=== PATIENT | male | born 1945 | race Caucasian/White ===

== ENCOUNTER 2025-03-30 08:43 | Inpatient (IN) | payer MEDICARE, OTHER ==
[~2025-03-30] VITALS: Ht 175.3 cm; Wt 77.3 kg
--- NOTE | 2025-03-30 08:52 | ELECTROCARDIOGRAPH REPORT ---
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 Ellis Camarillo Measurements Intervals [place] Rate: 106 P: 62 [place]: 160 QRS: -47 QRSD: 134 T: 55 QT: 351 QTc: 467 Interpretive Statements Pacemaker spikes or artifacts Sinus tachycardia Left atrial enlargement RBBB and LAFB Electronically Signed On 04-10-2025 21:42:[address] Ellis Camarillo Please click the below link to view image of tracing.
--- NOTE | 2025-03-30 09:03 | Physician Documentation ---
History of Present Illness ~ Chief Complaint: Shortness of Breath Stated Complaint: SOB Time Seen by MD: 08:54 Source: patient, EMS, RN notes reviewed, EMS notes reviewed, skilled nursing records Mode of Arrival: EMS Exam Limitations: no limitations HPI Chief Complaint: Shortness a breath Caveat: None Independent Historians: Paramedics History of Present Illness: Patient is a 79-year-old man brought in by paramedics from the [place] [facility]. Patient complains of increasing nonproductive cough and shortness of breath over week. Patient also has complained of increasing generalized weakness over one week. Patient normally uses oxygen intermittently as needed for his COPD. Now he has required oxygen 2 L nasal cannula for a pulse ox of 88% on room air at the [place] [facility]. For paramedics he had a pulse ox of 85-86% on room air. Blood glucose of 439, blood pressure 103/53 and a heart rate of 110 and respiratory rate of 24. Patient's pulse ox on 2 L improved to 97% on room air. Review of systems: All systems were reviewed and are negative except for what is indicated in the history of present illness. Past Medical History: Lung cancer, COPD, no history of diabetes, Past Surgical History: NONCONTRIBUTORY Social History: Lives at [facility] Medications: Reviewed as documented Nursing Notes Allergies: Reviewed as documented in Nursing Notes Medication Reconciliation Allergies: Coded Allergies: No Known Allergies (Unverified , 03/30/25) Scheduled Amlodipine Besylate (Amlodipine Besylate), 1 TAB PO DAILY, (Reported) Cyanocobalamin (Vitamin B-12) (Vitamin B-12), 1 CAP PO DAILY, (Reported) Docusate Sodium (Docusate Sodium), 1 CAP PO Q12H, (Reported) Finasteride (Finasteride), 1 TAB PO DAILY, (Reported) Omeprazole (Omeprazole), 1 CAP PO DAILY, (Reported) Polyethylene Glycol 3350* (Miralax*), 1 PKT PO DAILY, (Reported) Sennosides (Senna), 1 TAB PO Q12H, (Reported) Simvastatin (Simvastatin), 1 TAB PO HS, (Reported) Umeclidinium Morris (Incruse Ellipta), 1 PUFFS INH DAILY, (Reported) Miscellaneous Medications Fluticasone/Salmeterol (Advair 100-50 Diskus), (Reported) Iron Polysaccharides Complex (Ferrex 150), 150 MG PO, (Reported) Lactose-Free Food (Ensure Plus), (Reported) [Tamsulosin], (Reported) Physical Exam Vital Signs: Temperature: 98.2, Source: Oral, Heart Rate: 105, Respiratory Rate: 22, BP: 98/59, Pulse Oximetry: 92, Weight: 77.270 Oxygen Flow Rate: 0 Progress Results/Orders Results/Orders Orders - COSTA SIMMONS MD Culture Blood (03/30/25 08:45) Chest,Single View (03/30/25 08:45) Monitor (03/30/25 08:45) Saline Lock (03/30/25 08:45) Ct Chest (03/30/25 09:32) Cult Urine + Anton Ct (03/30/25 10:00) Page Hospitalist (03/30/25 10:45) Fill Out Med Reconciliation (03/30/25 10:45) Completed Orders - COSTA SIMMONS MD Cbc/Diff (03/30/25 08:45) Chest,Single View (03/30/25 08:45) Electrocardiogram (03/30/25 08:45) Procalcitonin (03/30/25 08:45) Lacticsepsis (03/30/25 08:45) CMP (03/30/25 08:55) Ceftriaxone 2gm/D5w 50ml Bag (Rocephin 2 (03/30/25 09:30) Normal Saline 1000ml (Sodium Chloride 10 (03/30/25 09:30) Ct Chest (03/30/25 09:32) Albuterol 2.5mg/3ml Nebule (Proventil 2. (03/30/25 10:00) * Rt Notification Q1H (03/30/25 09:58) Methylprednisolone Sod Succ (Solumedrol (03/30/25 10:00) Ua W/Microscopic, Cult If Ind (03/30/25 09:46) Methylprednisolone Sod Succ/Pf (Solu-Med (03/30/25 10:05) Man Diff (03/30/25 08:59) Lactic,2hr (03/30/25 10:27) Medications Received in ER Medications (Trade) Dose Ordered Sig/Giorgio Route PRN Reason Start Time Stop Time Status Last Admin Dose Admin Sodium Chloride 1,000 ml @ 150 mls/hr Q6H40M IV 03/30/25 11:30 03/30/25 14:17 150 MLS/HR Vital Signs 03/30/25 03/30/25 03/30/25 03/30/25 08:46 09:23 09:23 10:00 Temp 98.2 98.5 Pulse 105 102 100 Resp 22 35 30 28 B/P (MAP) 98/59 106/54 (71) 102/56 (71) Pulse Ox 92 92 92 O2 Flow Rate 0 4.0 4.0 03/30/25 03/30/25 03/30/25 10:14 10:24 11:00 Pulse 95 94 94 Resp 27 30 31 B/P (MAP) 99/49 (66) Pulse Ox 96 97 95 O2 Delivery Nasal Cannula* Nasal Cannula* O2 Flow Rate 5 5 4.0 FiO2 40 40 Laboratory Tests Test 03/30/25 08:59 03/30/25 09:46 03/30/25 10:47 White Blood Count 22.2 H Red Blood Count 3.46 L Hemoglobin 8.5 L Hematocrit 26.7 L Mean Corpuscular Volume 77.2 L Mean Corpuscular Hemoglobin 24.7 L Mean Corpuscular Hemoglobin Concent 32.0 L Red Cell Distribution Width 17.4 H Platelet Count 387 Mean Platelet Volume 8.1 Neutrophils (%) (Auto) 93.0 H Lymphocytes (%) (Auto) 3.2 L Monocytes (%) (Auto) 3.7 Eosinophils (%) (Auto) 0 Basophils (%) (Auto) 0.1 Neutrophils # (Auto) 20.7 H Lymphocytes # (Auto) 0.7 L Monocytes # (Auto) 0.8 Eosinophils # (Auto) 0.0 Basophils # (Auto) 0.0 CBC Comment Differential Total Cells Counted 100 Neutrophils % (Manual) 86.0 H Band Neutrophils % 8.0 Lymphocytes % (Manual) 3.0 L Monocytes % (Manual) 3.0 Toxic Granulation 1+ Platelet Estimate Normal Red Blood Cell Morphology Perf Basophilic Stippling Anisocytosis 1+ Microcytosis 1+ Rouleau 2+ Sodium Level 143 Potassium Level 3.9 Chloride Level 107 Carbon Dioxide Level 25.8 Anion Gap 10 Blood Urea Nitrogen 52 H Creatinine 1.47 H Estimated GFR/1.73 m2 46 BUN/Creatinine Ratio 35.4 H Glucose Level 290 H Osmolality 327 H Lactic Acid Level 3.7 H 2.7 H Calcium Level 9.7 Total Bilirubin 0.3 Aspartate Amino Transf (AST/SGOT) 23 Alanine Aminotransferase (ALT/SGPT) 26 Alkaline Phosphatase 94 Total Protein 8.0 Albumin 1.4 L Globulin 6.6 H Albumin/Globulin Ratio 0.2 L Procalcitonin 23.08 H Chemistry Comments Urine Specimen Description Mackey cath Urine Color Yellow Urine Clarity Cloudy Urine pH 6.0 Urine Specific [place] 1.025 Urine Protein 30 H Urine Glucose (UA) Negative Urine Ketones Negative Urine Occult Blood Small Urine Nitrite Negative Urine Bilirubin Negative Urine Urobilinogen 0.2 Urine Leukocyte Esterase Small H Urine RBC 3-10 Urine WBC 50-100 H Urine WBC Clumps Moderate Urine Squamous Epithelial Cells None seen Urine Renal Cells Few Urine Bacteria 4+ Urine Fine Granular Casts Urine Coarse Granular Casts 0-3 Urine White Blood Cell Casts 0-3 Urine Mucus None seen Urine Culture Indicated Indicated Volume Urine Centrifuged 5 ml Urine Comment Low volume Microbiology Date/Time Source Procedure Growth Status 03/30/25 10:00 Urine Mackey Cath Urine Culture - Preliminary Culture received. Resulted 03/30/25 09:00 Blood Arm Right Blood Culture - Preliminary NEGATIVE (LESS THAN 24 HOURS) Resulted Medical Decision Making Additional info obtained from: old records Findings Differential diagnosis includes but is not limited to: Sepsis, pneumonia, congestive heart failure, COPD exacerbation, electrolyte abnormalities, dehydration, new onset diabetes, lung cancer, pleural effusion EKG independent interpretation: Performed at 8:50 a.m.. Sinus tachycardia, heart rate 106, left axis deviation, left atrial enlargement Chest x-ray, single view, indication: Shortness of breath Independent interpretation: Complete opacification of the left lung, right lung is clear. Probable no effusion. CT chest without IV contrast, indication: Evaluation of left hemithorax opacification Impression: Large left pleural effusion with consolidation. Extensive soft tissue density within the mediastinum. Findings suggest pleural effusion with neoplastic process. Superimposed infection can not be excluded. Laboratory data independent interpretation: CBC: Leukocytosis of 22.2, the can anemia with a hemoglobin of 8.5 and hematocrit of 26.7, 8% bands CMP: BUN and creatinine are mildly elevated at 52 and 1.47 respectively Urinalysis: Patient with a urinary tract infection Lactic acid: 3.7 Emergency department course/medical decision-making: Patient is a 79-year-old man from the [place] who appears to be septic. Patient is requiring now 6 L of oxygen by nasal cannula. Chest x-ray shows complete left leno thorax opacification likely due to pneumonia, pleural fluid and lung cancer. Patient is DNR and selective care. Patient is given 1 L of IV normal saline, Solu-Medrol 125 mg IV bolus, Rocephin 2 g IV, albuterol 5 mg neb. Patient also has COPD. Above treatment is given for sepsis, pneumonia. Patient may also have a urinary tract [place]. [place] [id number] and a lactic acid of 3.7. Patient's blood pressure has been stable. Recommend Admission for the above and continued treatment. Test results and treatment plan reviewed with the patient. Consultation/communications: 11:07 a.m.: Case discussed with the resident/hospitalist. He will see the patient for admission. Departure Time of Disposition: 10:44 Admitted to Inpatient Unit: to hospitalist Admission Level of Care: PCU with Tele Impression: Primary Impression: Respiratory failure with hypoxia Qualified Codes: J96.21 - Acute and chronic respiratory failure with hypoxia Additional Impressions: Acute exacerbation of chronic obstructive airways disease Pneumonia Qualified Codes: J18.9 - Pneumonia, unspecified organism Sepsis Qualified Codes: A41.9 - Sepsis, unspecified organism; R65.20 - Severe sepsis without septic shock; J96.01 - Acute respiratory failure with hypoxia Lung cancer Qualified Codes: C34.90 - Malignant neoplasm of unspecified part of unspecified bronchus or lung Pleural effusion Anemia Qualified Codes: D64.9 - Anemia, unspecified Acute kidney injury Referrals: NO PRIMARY CARE PROVIDER (PCP) Education Educated: Patient Educated regarding: diagnosis, treatment Signature Scribe Signature: NO SCRIBE Attestation: NO SCRIBE COSTA SIMMONS MD March 30, 2025 09:03
[2025-03-30 09:13] LABS: BASOPHILS % (AUTO) 0.1 % (0-1); EOSINOPHILS % (AUTO) 0 % (0-6); HEMATOCRIT 26.7 % (42.0-52.0); HEMOGLOBIN 8.5 g/dl (14.0-17.9); LYMPHOCYTES # (AUTO) 0.7 X10'3 (1.1-4.8); LYMPHOCYTES % (AUTO) 3.2 % (21-51); MEAN CORPUSCULAR HEMOGLOBIN 24.7 PG (27.0-31.0); MEAN CORPUSCULAR VOLUME 77.2 FL (78-98); MEAN PLATELET VOLUME 8.1 FL (7.4-10.4); MONOCYTES # (AUTO) 0.8 X10'3 (0-0.9); MONOCYTES % (AUTO) 3.7 % (2-12); NEUTROPHILS # (AUTO) 20.7 X10'3 (1.8-7.7); PLATELET COUNT 387 X10'3 (140-440); RED BLOOD COUNT 3.46 X10'6 (4.70-6.10); RED CELL DISTRIBUTION WIDTH 17.4 % (11.5-14.5); WHITE BLOOD COUNT 22.2 X10'3 (4.5-11.0)
--- NOTE | 2025-03-30 09:20 | RADIOLOGY REPORT ---
DI CHEST,SINGLE VIEW, HISTORY: sepsis alert COMPARISON: None None TECHNICAL DATA: 1 view of the chest was obtained. FINDINGS: Lines and tubes: None Cardiomediastinal silhouette: normal Pulmonary vasculature: normal Lung expansion: normal Lung airspace: Lung interstitium: normal Pleura: normal Pneumothorax: no Bones: Unremarkable Other: no IMPRESSION: Near complete opacification of the left hemithorax with a adjacent left pleural effusion could be due to consolidation.
[2025-03-30 09:24] LABS: ALANINE AMINOTRANSFERASE 26 U/L (12-78); ALBUMIN 1.4 G/DL (3.4-5.0); ALBUMIN/GLOBULIN RATIO 0.2 (1.1-1.5); ALKALINE PHOSPHATASE 94 IU/L (46-116); ANION GAP 10 (8-16); ASPARTATE AMINO TRANSFERASE 23 U/L (10-37); BILIRUBIN,TOTAL 0.3 MG/DL (0.1-1.0); BLOOD UREA NITROGEN 52 MG/DL (7-18); BUN/CREATININE RATIO 35.4 (10.0-20.0); CALCIUM 9.7 MG/DL (8.5-10.1); CHLORIDE 107 MMOL/L (99-107); CREATININE 1.47 MG/DL (0.60-1.10); GLUCOSE 290 MG/DL (70-104); POTASSIUM 3.9 MMOL/L (3.5-5.1); SODIUM 143 MMOL/L (135-145); TOTAL CARBON DIOXIDE 25.8 MMOL/L (24-32); eCRCL 41 ML/MIN; eGFR 46 ML/MIN
[2025-03-30] MEDS: normal saline 1000ML IV soln IV ONE (09:38)
[2025-03-30 09:58] LABS: BILIRUBIN,URINE NEGATIVE (Neg); CLARITY,URINE CLOUDY (Clear); COLOR,URINE YELLOW (Yellow); GLUCOSE, URINE NEGATIVE (Neg); KETONES,URINE NEGATIVE (Neg); LEUKOCYTE ESTERASE ,URINE SMALL (Neg); NITRITES, URINE NEGATIVE (Neg); OCCULT BLOOD,URINE SMALL (Neg); PROTEIN,URINE 30 mg/dl (Neg); UROBILINOGEN,URINE 0.2 E.U/dL (0.2-1.0)
[2025-03-30 10:00] LABS: UA COLLECTION TYPE FOLEY CATH
[2025-03-30] MEDS: CefTRIAXone 2gm/D5W 50ml BAG 50 ML IV ONE (10:00)
[2025-03-30 10:03] LABS: BACTERIA,URINE 4+ /HPF (Neg); WBC,URINE 50-100 /HPF (0-4)
[2025-03-30 10:04] LABS: COARSE GRANULAR CAST 0-3 /LPF (NEGATIVE); MUCUS STRANDS NONE SEEN /LPF (Neg); RENAL CELLS, URINE FEW /HPF; SQUAMOUS EPITHELIAL CELL,UR NONE SEEN /LPF (FEW); WBC CASTS 0-3 /LPF (NEGATIVE); WBC CLUMPS,URINE MODERATE /HPF (NEGATIVE)
--- NOTE | 2025-03-30 10:07 | RADIOLOGY REPORT ---
EXAM: CT Chest Without Intravenous Contrast CLINICAL INDICATION: SHORTNESS OF BREATH, OPACIFICATION OF LEFT CHEST TECHNIQUE: Axial computed tomography images of the chest without intravenous contrast. This CT exam was performed using one or more of the following dose reduction techniques: automated exposure cont rol, adjustment of the mA and/or kV according to patient size, and/or use of iterative reconstruction technique. CONTRAST: COMPARISON: None FINDINGS: LUNGS AND PLEURAL SPACES: Large left pleural effusion with consolidation. Extensive soft tissue de nsity within the mediastinum. Findings suggest pleural effusion with neoplastic process. Superimpos ed infection can not be excluded. No pneumothorax. HEART: Unremarkable. No cardiomegaly. No significant pericardial effusion. No significant dominguez ry artery calcifications. BONES/JOINTS: Unremarkable. No acute fracture. No dislocation. SOFT TISSUES: Unremarkable. VASCULATURE: Unremarkable. No thoracic aortic aneurysm. LYMPH NODES: Unremarkable. No enlarged lymph nodes. OTHER FINDINGS: . IMPRESSION: Large left pleural effusion with consolidation. Extensive soft tissue density within the mediastinu m. Findings suggest pleural effusion with neoplastic process. Superimposed infection can not be exc luded.
[2025-03-30] MEDS: methylPREDNISolone sod succ 125mg/2ml vial IV ONE (10:09)
[2025-03-30] MEDS: methylPREDNISolone sod succ/PF 40mg inj. IV ONE (10:10)
[2025-03-30] MEDS: albuterol 2.5 MG/3 ML nebule NEB ONE (10:12)
[2025-03-30 10:14] VITALS: PULSE 95; RESP 25; RESP 27; O2SAT 96
[2025-03-30 10:20] LABS: ANISOCYTOSIS 1+; MICROCYTOSIS 1+; PLATELET ESTIMATE NORMAL; ROULEAUX 2+; TOTAL CELLS COUNTED 100
[2025-03-30 10:21] LABS: TOXIC GRANULATION 1+
[2025-03-30 10:24] VITALS: PULSE 94; RESP 30; O2SAT 97
[2025-03-30] MEDS ORDERED: ondansetron/PF 4mg/2ml inj IV PRN (11:30)
[2025-03-30] MEDS ORDERED: magnesium sulf-water 2g/50mL 50 ML IV PRN (11:30)
[2025-03-30] MEDS ORDERED: magnesium Cl slow-release 64mg tablet PO PRN (11:30)
[2025-03-30] MEDS ORDERED: acetaminophen 325mg tablet PO PRN (11:30)
[2025-03-30] MEDS ORDERED: potassium Cl 40MEQ/1/2NS 520ml 520 ML IV PRN (11:30)
[2025-03-30] MEDS ORDERED: magnesium sulf-water 4G/100mL 100 ML IV PRN (11:30)
[2025-03-30] MEDS ORDERED: ipratropium/albuterol 3ml nebule NEB PRN (11:40)
--- NOTE | 2025-03-30 11:46 | HISTORY AND PHYSICAL-Residence ---
History & Physical Providers to CC Resident Creating Document: MARK LEBRON RES ~ History of Present Illness Reason for Admit\Complaint: SHORTNESS OF BREATHS History of Present Illness Patient is a 79-year-old male, active smoker, with a history of COPD (not on home oxygen) and lung cancer (20 years ago) presents to ED for progressively worsening shortness of breath and cough for the past four weeks. For the past one week, his shortness of breath has gotten worse and has been constantly coughing; usually dry cough, but occasionally produce whitish sputum. Patient also noticed recent weight loss, but does not know how much, and diminished appetite. He denies any fever, chest pain, or chills. He also denies any urinary symptoms. He has completed chemotherapy 20 years ago for lung cancer. He seeks primary care at [facility]. 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 Allergies: Coded Allergies: No Known Allergies (Unverified , 03/30/25) Past Medical History Past Medical History COPD, lung cancer Past Surgical History Surgical History Comment None Past Social History Social History Comment Patient lives at [facility], he has been smoking for the past 60 years; 3-4 cigarettes per day. No alcohol or recreational drugs. ROS All Other Systems: Reviewed and Negative ROS As stated above in the HPI, otherwise all systems are reviewed and negative. Exam Vitals: Vital Signs Date Time Temp Pulse Resp B/P (MAP) Pulse Ox O2 Delivery O2 Flow Rate FiO2 03/30/25 11:00 94 31 99/49 (66) 95 4.0 03/30/25 10:24 Nasal Cannula* 40 03/30/25 09:23 98.5 General Appearance: Cachectic, very dry, lost his voice only communicate through whispers HEENT: Sunken eyes Neck: Trachea midline. Supple, normal ROM. No JVD, bruit, lymphadenopathy or masses, or other lesions. Respiratory: Bronchial breath sounds bilaterally, more prominent on left side, diffuse bilateral coarse crackles. Decreased breath sounds left side. Cardiac: RRR, no murmur, rub or gallop. Normal S1 and S2. GI: No tenderness. Abdomen symmetric, nondistended, soft, normal bowel sounds x4 quadrant normoactive. No guarding, no rebound or rigidity. No hepatosplenomegaly. No masses, no bruit, no flank pain bilaterally. Extremities: Normal ROM, no swelling, non-tender. Distal pulses full symmetrical, no clubbing, cyanosis, edema, capillary refill less than 2 seconds. Skin: Prominent skin turgor is Neuro: Speech is clear, alert and oriented x4. No sensory or motor deficit, DTRs normal. Cranial nerves II to XII intact. Psych: Normal affect, good eye contact, no apparent hallucination, whispers but normal communication Diagnostic Data Last Recorded Lab Results: 03/30/25 0859 03/30/25 0859 Advance Care Planning Advanced Care plannin - 30 Minutes Additional Plan Assessment and plan: Patient is a 79-year-old male, active smoker, with a history of COPD (not on home oxygen) and lung cancer (20 years ago) presents to ED for progressively worsening shortness of breath and cough for the past four weeks. Acute hypoxemic respiratory failure Sepsis and septic shock, POA; leukocytosis of 22.2, with 8% bands, lactic acidosis with 3.7, hypotensive, tachypneic, and tachycardic Community acquired pneumonia, Gram-positive, Gram-negative, and anaerobic coverage Acute COPD exacerbation Source; most likely combination of pneumonia and UTI CXR shows complete opacification of the left lung CT chest; left hemothorax opacification with large left pleural effusion with consolidation Nonetheless right lung is clear, I highly suspect aspiration pneumonia because of impaired vocal cord/laryngeal function. Preliminary blood cultures negative, follow sputum culture and coagulation profile On 6 L oxygen via nasal cannula - Keep oxygen saturation between 89 and 90%, IV hydration; received 2 L NS bolus in ER, ordered another 1 L bolus. Continue NS 125 mL/hours Keep MEP > 65, if hypotension persists with IV hydration, we will initiate vasopressors Monitor lactic acid level, we will repeat in 4 hours Initiated empiric broad-spectrum antibiotics i.e. vancomycin and Zosyn Monitor hemodynamic instability closely Urinary tract infection: UA suggestive of UTI Follow culture On broad-spectrum antibiotics Acute kidney injury: ATN versus renal tubular stasis Continue IV hydration Follow urine sodium, creatinine, and osmolality Monitor BMP closely Microcytic hypochromic anemia: Monitor H&H closely, transfuse when indicated; hemoglobin < 7.0 Follow serum iron, ferritin, and TIBC Code Status: Full DVT prophylaxis: Heparin subQ Analgesia/sedation: Tylenol as needed Line/tube: PIV GI prophylaxis: Protonix Nutrition: NPO until cleared by speech/swallow PT: Yes Prognosis: Guarded Disposition: Patient is admitted to telemetry floor. Patient may benefit from diagnostic/therapeutic thoracentesis and bronchoscopy - pulmonology consult. Mark Lebron Internal Medicine Resident Date of Service: March 30, 2025 Billing Provider: KETTY CARRION MD Common Visit Codes: 25652-WHGAVSW INP/OBS CARE (HIGH) Secondary Visit Codes: 23764-MXLNOPSF CARE PLAN 30 MINUTES MARK LEBRON, RES March 30, 2025 11:46 KETTY CARRION MD April 10, 2025 17:35
[2025-03-30] MEDS: normal saline 1000ml 1,000 ML IV ONE (12:22)
[2025-03-30] MEDS: VANCOMYCIN 2GM/400ML H20 (PEG) 400 ML IV ONE (12:26)
[2025-03-30] MEDS ORDERED: TAMSULOSIN (12:44)
[2025-03-30] MEDS ORDERED: DOCU100C40 PO (12:44)
[2025-03-30] MEDS ORDERED: AMLO10TA13 PO (12:44)
[2025-03-30] MEDS ORDERED: ADV50100 (12:44)
[2025-03-30] MEDS ORDERED: FINA5TAB11 PO (12:44)
[2025-03-30] MEDS ORDERED: IRON150C5 PO (12:44)
[2025-03-30] MEDS ORDERED: OMEP20CA16 PO (12:44)
[2025-03-30] MEDS ORDERED: SENN-360 PO (12:44)
[2025-03-30] MEDS ORDERED: UMEC62.5 INH (12:44)
[2025-03-30] MEDS ORDERED: LACT-48 (12:44)
[2025-03-30] MEDS ORDERED: POLY17PO10 PO (12:44)
[2025-03-30] MEDS ORDERED: CYAN-34 PO (12:44)
[2025-03-30] MEDS ORDERED: SIMV10TA98 PO (12:44)
[2025-03-30 13:19] LABS: % IRON SATURATION 9 % (11-46); IRON 10 UG/DL (53-167); TOTAL IRON BINDING CAPACITY 110 UG/DL (259-388)
[2025-03-30] MEDS: normal saline 1000ml 1,000 ML IV SCH (14:17)
[2025-03-30 14:29] LABS: APTT 21 SECONDS (22-32); INR 1.8 INR; PROTHROMBIN TIME 17.3 SECONDS (9.0-12.0)
[2025-03-30] MEDS: ipratropium/albuterol 3ml nebule NEB SCH (15:00)
--- NOTE | 2025-03-30 15:13 | ELECTROCARDIOGRAPH REPORT ---
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 Ellis Camarillo Measurements Intervals [place] Rate: 102 P: 69 [place]: 151 QRS: -21 QRSD: 131 T: 41 QT: 363 QTc: 473 Interpretive Statements Sinus tachycardia Ventricular bigeminy Left atrial enlargement Right bundle branch block Electronically Signed On 04-10-2025 21:42:[address] Elils Camarillo Please click the below link to view image of tracing.
[2025-03-30] MEDS: piperacillin/tazo 3.375gm/50ml 50 ML IV SCH (16:15)
[2025-03-30] MEDS: K and/or MAG REPLACEMENT MC SCH (20:00)
[2025-03-30] MEDS: heparin, porcine 5000 units/ml vial SQ SCH (21:08)
[2025-03-30] MEDS: pantoprazole 40 MG vial IV SCH (21:09)
[2025-03-30 21:32] VITALS: BP 109/52; PULSE 91; RESP 22; TEMP 97.6; O2SAT 95
[2025-03-30 22:00] VITALS: BP 101/51; PULSE 93; RESP 15; RESP 32; TEMP 97.8; O2SAT 92; O2SAT 95
[2025-03-30 22:53] VITALS: PULSE 85; RESP 32; O2SAT 92
[2025-03-30 23:00] VITALS: PULSE 81; RESP 26
[2025-03-31] VITALS (19 sets, daily range): BP systolic 103–135; BP diastolic 47–63; PULSE 75–109; RESP 16–31; TEMP 97.9–99.9; O2SAT 83–96
[2025-03-31 06:35] LABS: BASOPHILS % (AUTO) 0.2 % (0-1); EOSINOPHILS % (AUTO) 0 % (0-6); HEMATOCRIT 25.2 % (42.0-52.0); LYMPHOCYTES % (AUTO) 6.5 % (21-51); MEAN CORPUSCULAR HEMOGLOBIN 24.8 PG (27.0-31.0); MEAN CORPUSCULAR HGB CONC 31.9 g/dL (33.0-36.5); MEAN CORPUSCULAR VOLUME 77.9 FL (78-98); MEAN PLATELET VOLUME 8.1 FL (7.4-10.4); MONOCYTES # (AUTO) 0.6 X10'3 (0-0.9); MONOCYTES % (AUTO) 4.1 % (2-12); NEUTROPHILS # (AUTO) 13.4 X10'3 (1.8-7.7); NEUTROPHILS % (AUTO) 89.2 % (42-75); PLATELET COUNT 295 X10'3 (140-440); RED BLOOD COUNT 3.23 X10'6 (4.70-6.10); RED CELL DISTRIBUTION WIDTH 17.9 % (11.5-14.5); WHITE BLOOD COUNT 15.1 X10'3 (4.5-11.0)
[2025-03-31 07:04] LABS: ALANINE AMINOTRANSFERASE 16 U/L (12-78); ALBUMIN/GLOBULIN RATIO 0.2 (1.1-1.5); ALKALINE PHOSPHATASE 67 IU/L (46-116); ANION GAP 8 (8-16); ASPARTATE AMINO TRANSFERASE 20 U/L (10-37); BILIRUBIN,TOTAL 0.3 MG/DL (0.1-1.0); BLOOD UREA NITROGEN 37 MG/DL (7-18); BUN/CREATININE RATIO 40.2 (10.0-20.0); CHLORIDE 117 MMOL/L (99-107); CREATININE 0.92 MG/DL (0.60-1.10); GLUCOSE 251 MG/DL (70-104); SODIUM 148 MMOL/L (135-145); TOTAL CARBON DIOXIDE 23.2 MMOL/L (24-32); TOTAL PROTEIN 6.8 G/DL (6.4-8.2); eCRCL 66 ML/MIN; eGFR 80 ML/MIN
[2025-03-31] MEDS: methylPREDNISolone sod succ/PF 40mg inj. IV SCH ×2 (08:19→17:14)
[2025-03-31] MEDS: potassium Cl 20 mEq SR tablet PO PRN (08:23)
[2025-03-31] MEDS: guaiFENesin ER 600mg tablet PO SCH (11:41)
[2025-03-31] MEDS: vancomycin/NS 1 GM ADD-VANTAGE 250 ML IV SCH (11:41)
[2025-03-31] MEDS ORDERED: ipratropium/albuterol 3ml nebule NEB PRN (14:40)
--- NOTE | 2025-03-31 16:47 | PROGRESS NOTE- Residence ---
Progress Note - Resident Providers to CC Resident Creating Document: MICHAEL MONTOYA RES CC: KETTY CARRION MD ~ Antibiotic Timeout Antibiotic Ordered?: Yes Subjective Patient examined at bedside. Patient's family was at bedside who shared a piece of history when patient had lung cancer 18 years back and right lung was resected partially (2/3) 18 years ago. Objective Vital Signs Date Time Temp Pulse Resp B/P (MAP) Pulse Ox O2 Delivery O2 Flow Rate FiO2 03/31/25 15:42 101 27 Nasal Cannula 5.0 03/31/25 15:34 94 40 03/31/25 02:00 98.4 103/54 (70) Result Diagram: 03/31/2561903/31/25619 General: Cachectic, Alert, awake, oriented, not in acute distress HEENT: PERRLA, no icterus, pallor, lymphadenopathy, carotid bruit Respiratory system: Decreased breath sounds on the left side in all lung zones, inspiratory crackles present in right middle and lower zones CVS: S1-S2 heard, no murmurs/rubs/gallop GI: Soft, nontender, no organomegaly, no guarding/rigidity, bowel sounds present Neuro: No focal neurological deficits present Extremities: No edema cyanosis clubbing/deformities Skin: Warm and dry Coagulation Studies Laboratory Tests Test 03/30/25 14:08 Prothrombin Time 17.3 SECONDS (9.0-12.0) H INR International Normalized Ratio 1.8 INR Activated Partial Thromboplast Time 21 SECONDS (22-32) L Coagulation Comments Assessment Assessment A 73-year-old male active smoker with history of COPD and lung cancer presented to the ED for progressive worsening of shortness of breaths and cough. Patient was admitted for the evaluation management of community-acquired pneumonia, COPD exacerbation and UTI. Plan Plan Acute hypoxemic respiratory failure 2/2 Community-acquired pneumonia Gram-positive, Gram-negative, and anaerobic coverage Acute COPD exacerbation Sepsis, POA leukocytosis, improving Blood cultures positive for Gram-positive cocci in clusters Follow up with sputum culture On 6 L oxygen via nasal cannula - Keep oxygen saturation between 89 and 90%, IV hydration; received 2 L NS bolus in ER, ordered another 1 L bolus. Continue NS 125 mL/hours Keep MEP > 65, if hypotension persists with IV hydration, we will initiate vasopressors Monitor lactic acid level, we will repeat in 4 hours Initiated empiric broad-spectrum antibiotics i.e. vancomycin and Zosyn (day two) Monitor hemodynamic instability closely Urinary tract infection: UA suggestive of UTI Cultures positive for Gram-positive cocci and Gram-negative rods On broad-spectrum antibiotics as per above Acute kidney injury: 2/2 renal tubular stasis, improved Continue IV hydration Monitor BMP closely Microcytic hypochromic anemia: Monitor H&H closely, transfuse when indicated; hemoglobin < 7.0 Follow serum iron, ferritin, and TIBC Code Status: Full DVT prophylaxis: Heparin subQ Analgesia/sedation: Tylenol as needed Line/tube: PIV GI prophylaxis: Protonix Nutrition: NPO until cleared by speech/swallow PT: Yes Prognosis: Guarded Disposition: Patient is admitted to telemetry floor. Patient may benefit from diagnostic/therapeutic thoracentesis and bronchoscopy - pulmonology consult. Michael Montoya MD Internal Medicine, PGY 1 Date of Service: March 31, 2025 Billing Provider: KETTY CARRION MD Common Visit Codes: [id number]-[id number] INP/OBS CARE(HIGH) MICHAEL MONTOYA, RES March 31, 2025 16:46 KETTY CARRION MD April 10, 2025 17:35
[2025-04-01] VITALS (22 sets, daily range): BP systolic 96–134; BP diastolic 52–73; PULSE 69–107; RESP 14–32; TEMP 96.9–99.6; O2SAT 91–98
[2025-04-01 07:08] LABS: BASOPHILS % (AUTO) 0.1 % (0-1); EOSINOPHILS % (AUTO) 0 % (0-6); HEMATOCRIT 24.9 % (42.0-52.0); HEMOGLOBIN 7.9 g/dl (14.0-17.9); LYMPHOCYTES # (AUTO) 0.8 X10'3 (1.1-4.8); LYMPHOCYTES % (AUTO) 7.8 % (21-51); MEAN CORPUSCULAR HEMOGLOBIN 24.6 PG (27.0-31.0); MEAN CORPUSCULAR HGB CONC 31.6 g/dL (33.0-36.5); MEAN CORPUSCULAR VOLUME 77.8 FL (78-98); MEAN PLATELET VOLUME 8.8 FL (7.4-10.4); MONOCYTES # (AUTO) 0.7 X10'3 (0-0.9); MONOCYTES % (AUTO) 6.4 % (2-12); NEUTROPHILS % (AUTO) 85.7 % (42-75); PLATELET COUNT 265 X10'3 (140-440); RED CELL DISTRIBUTION WIDTH 17.9 % (11.5-14.5); WHITE BLOOD COUNT 10.5 X10'3 (4.5-11.0)
[2025-04-01 07:39] LABS: ALANINE AMINOTRANSFERASE 19 U/L (12-78); ALBUMIN/GLOBULIN RATIO 0.2 (1.1-1.5); ALKALINE PHOSPHATASE 63 IU/L (46-116); ANION GAP 7 (8-16); ASPARTATE AMINO TRANSFERASE 20 U/L (10-37); BILIRUBIN,TOTAL 0.4 MG/DL (0.1-1.0); BLOOD UREA NITROGEN 31 MG/DL (7-18); BUN/CREATININE RATIO 38.3 (10.0-20.0); CALCIUM 9.1 MG/DL (8.5-10.1); CHLORIDE 117 MMOL/L (99-107); CREATININE 0.81 MG/DL (0.60-1.10); GLUCOSE 201 MG/DL (70-104); POTASSIUM 3.4 MMOL/L (3.5-5.1); SODIUM 147 MMOL/L (135-145); TOTAL CARBON DIOXIDE 22.7 MMOL/L (24-32); TOTAL PROTEIN 6.6 G/DL (6.4-8.2); eCRCL 75 ML/MIN; eGFR > 90 ML/MIN
[2025-04-01] MEDS: PERFLUTREN PROTEIN-A MICROSPHR (Optison) 0.22 MG/ML 3ML VIAL IV ONE (07:40)
[2025-04-01] MEDS: potassium Cl 20 mEq SR tablet PO PRN (07:59)
--- NOTE | 2025-04-01 15:04 | RADIOLOGY REPORT ---
Left Chest Sonogram Date: 04/01/2025 10:09 AM Clinical history: left pleural effusion Findings: Limited sonographic evaluation of the left chest was performed to localize and matthew fluid for thorac entesis. There is a small pleural effusion. IMPRESSION: Small left pleural effusion, too small for thoracentesis
--- NOTE | 2025-04-01 17:17 | CARDIOLOGY REPORT ---
APPROVED REPORT EXAM: Comprehensive 2D, Doppler, and color-flow Echocardiogram. Patient Location: 3[address] Blood Pressure: 96/69 mmHg Heart Rate: 102 bpm Rhythm: SINUS w/BIGEMINAL PVCs Indications EVALUATE FOR SUBACUTE BACTERIAL ENDOCARDITIS LUNG CANCER S/P R LUNG RESECTION Cab Starter: none Previous echo: none 2D Dimensions RVDd 4.4 cm LA Diam4.3 cm IVSd 0.9 (0.7-1.1cm) LVDd 4.9 cm PWd 0.8 (0.7-1.1cm) IVSs 1.3 (0.8-1.2cm) LVDs 3.3 (2.5-4.0cm) PWs 1.2 (0.8-1.2cm) LVOT Diameter 2.06 (1.8-2.4cm) LVEF(%) 59.3 (>50%) IVC 25.44 mmFS (%) 31.5 % SV 66.1 ml CO 6.7 L/min Biplane 2D LA Volumes LA ESV Index 27.38 mL/m2 Aortic Valve AoV Peak Canelo. 165.6 cm/s AoV VTI 30.1 cm AO Peak GR. 11.0 mmHg AO Mean GR. 7 mmHg LVOT VTI 21.18 cm LVOT Peak Canelo. 118.0 cm/s DEMETRIUS(VTI)/BSA 2.34 cm2/m2 DEMETRIUS (VTI) 2.34 cm2 Mitral Valve MV E Velocity 120.9 cm/s MV Peak Gr. 5 mmHg MV PHT 48 ms MVA (PHT) 4.58 cm2 MV HOhi801.1 cm/s LEFT VENTRICLE Normal LV size and wall thickness. Overall systolic function is normal. LVEF is 60%. RIGHT VENTRICLE RV is moderately dilated in size with normal function. ATRIA The left atrium size is normal. AORTIC VALVE Trileaflet AV appears mildly sclerotic without stenosis or insufficiency. MITRAL VALVE Mild MV annular calcification without stenosis. Mild regurgitation. TRICUSPID VALVE TV appears structurally normal with trace regurgitation. PULMONIC VALVE Normal PV without stenosis, physiologic insufficiency. GREAT VESSELS Aortic root is normal in size. PERICARDIUM Small posterior pericardial effusion without hemodynamic compromise. Other Information Study Quality: Adequate, but measurements are estimated due to bigeminy. Conclusion Normal LV size and wall thickness. Overall systolic function is normal. LVEF is 60%. RV is moderately dilated in size with normal function. The left atrium size is normal. Trileaflet AV appears mildly sclerotic without stenosis or insufficiency. Mild MV annular calcification without stenosis. Mild regurgitation. TV appears structurally normal with trace regurgitation. Small posterior pericardial effusion without hemodynamic compromise.
--- NOTE | 2025-04-01 18:58 | PROGRESS NOTE- Residence ---
Progress Note - Resident Providers to CC Resident Creating Document: MARK LEBRON RES ~ Antibiotic Timeout Antibiotic Ordered?: Yes Subjective Patient examined at bedside. His daughter and son-in-law presented at bedside who shared a piece of history when patient had lung cancer 18 years back and right lung was resected partially (2/3) 18 years ago. Respiratory culture grew Gram-positive cocci and Gram-negative rods Urine culture grows Klebsiella pneumoniae, and MRSA Blood culture shows Gram-positive cocci in cluster Consulted insurance account manager for diagnostic and therapeutic thoracentesis. Concluded small pleural effusion, less amenable to tap We will continue vancomycin and Zosyn, ID consult is requested. Objective Vital Signs Date Time Temp Pulse Resp B/P (MAP) Pulse Ox O2 Delivery O2 Flow Rate FiO2 04/01/25 15:38 92 22 Nasal Cannula 6.0 04/01/25 15:30 91 44 04/01/25 15:00 97.6 104/52 (69) General: Cachectic, Alert, awake, oriented, not in acute distress HEENT: PERRLA, no icterus, pallor, lymphadenopathy, carotid bruit Respiratory/chest: Decreased breath sounds on the left side in all lung zones, inspiratory crackles present in right middle and lower zones CVS: S1-S2 heard, no murmurs/rubs/gallop GI: Soft, nontender, no organomegaly, no guarding/rigidity, bowel sounds present Neuro: No focal neurological deficits present Extremities: No edema cyanosis clubbing/deformities Skin: Warm and dry Result Diagram: 04/01/25 0629 04/01/25 0629 Coagulation Studies Laboratory Tests Test 03/30/25 14:08 Prothrombin Time 17.3 SECONDS (9.0-12.0) H INR International Normalized Ratio 1.8 INR Activated Partial Thromboplast Time 21 SECONDS (22-32) L Coagulation Comments Advance Care Planning Advanced Care plannin - 30 Minutes Assessment Assessment A 73-year-old male active smoker with history of COPD and lung cancer presented to the ED for progressive worsening of shortness of breaths and cough. Patient was admitted for the evaluation management of community-acquired pneumonia, COPD exacerbation and UTI. Plan Plan Acute hypoxemic respiratory failure 2/2 Community-acquired pneumonia Gram-positive, Gram-negative, and anaerobic coverage Acute COPD exacerbation Sepsis, POA WBC trending down Blood cultures positive for Gram-positive cocci in clusters Follow up with sputum culture On 6 L oxygen via nasal cannula - Keep oxygen saturation between 89 and 90%, IV hydration; received 2 L NS bolus in ER, ordered another 1 L bolus. Continue NS 125 mL/hours Keep MEP > 65, if hypotension persists with IV hydration, we will initiate vasopressors Monitor lactic acid level, we will repeat in 4 hours Initiated empiric broad-spectrum antibiotics i.e. vancomycin and Zosyn (day two) Monitor hemodynamic instability closely Urinary tract infection: UA suggestive of UTI Cultures positive for Gram-positive cocci and Gram-negative rods On broad-spectrum antibiotics as per above Acute kidney injury: 2/2 renal tubular stasis, improved Continue IV hydration Monitor BMP closely Microcytic hypochromic anemia: Monitor H&H closely, transfuse when indicated; hemoglobin < 7.0 Follow serum iron, ferritin, and TIBC April 01, 2025: Respiratory culture grew Gram-positive cocci and Gram-negative rods Urine culture grows Klebsiella pneumoniae, and MRSA Blood culture shows Gram-positive cocci in cluster Consulted insurance account manager for diagnostic and therapeutic thoracentesis. Concluded small pleural effusion, less amenable to tap We will continue vancomycin and Zosyn, ID consult is requested. Code Status: Full DVT prophylaxis: Heparin subQ Analgesia/sedation: Tylenol as needed Line/tube: PIV GI prophylaxis: Protonix Nutrition: NPO until cleared by speech/swallow PT: Yes Prognosis: Guarded Disposition: We will continue treating him in PCU in isolation because of MRSA. Consulted ID. Critical care time 35 minutes Mark [facility] Internal [facility] Resident Date of Service: April 01, 2025 Billing Provider: KETTY CARRION MD Common Visit Codes: [id number] CARE 30-74 MIN MARK LEBRON, RES April 01, 2025 18:58 KETTY CARRION MD April 10, 2025 17:36
[2025-04-02] VITALS (20 sets, daily range): BP systolic 101–119; BP diastolic 59–70; PULSE 69–91; RESP 15–30; TEMP 95–98.9; O2SAT 90–98
[2025-04-02 06:30] LABS: BASOPHILS % (AUTO) 0.3 % (0-1); EOSINOPHILS % (AUTO) 0 % (0-6); HEMOGLOBIN 8.2 g/dl (14.0-17.9); LYMPHOCYTES # (AUTO) 0.9 X10'3 (1.1-4.8); LYMPHOCYTES % (AUTO) 10.6 % (21-51); MEAN CORPUSCULAR HEMOGLOBIN 24.4 PG (27.0-31.0); MEAN CORPUSCULAR HGB CONC 31.4 g/dL (33.0-36.5); MEAN CORPUSCULAR VOLUME 77.7 FL (78-98); MEAN PLATELET VOLUME 9.4 FL (7.4-10.4); MONOCYTES # (AUTO) 0.5 X10'3 (0-0.9); MONOCYTES % (AUTO) 5.4 % (2-12); NEUTROPHILS # (AUTO) 7.1 X10'3 (1.8-7.7); NEUTROPHILS % (AUTO) 83.7 % (42-75); PLATELET COUNT 256 X10'3 (140-440); RED BLOOD COUNT 3.35 X10'6 (4.70-6.10); RED CELL DISTRIBUTION WIDTH 18.4 % (11.5-14.5); WHITE BLOOD COUNT 8.5 X10'3 (4.5-11.0)
[2025-04-02 07:25] LABS: ALANINE AMINOTRANSFERASE 20 U/L (12-78); ALBUMIN 0.9 G/DL (3.4-5.0); ALBUMIN/GLOBULIN RATIO 0.2 (1.1-1.5); ALKALINE PHOSPHATASE 58 IU/L (46-116); ANION GAP 10 (8-16); ASPARTATE AMINO TRANSFERASE 17 U/L (10-37); BILIRUBIN,TOTAL 0.3 MG/DL (0.1-1.0); BLOOD UREA NITROGEN 30 MG/DL (7-18); CALCIUM 9.1 MG/DL (8.5-10.1); CHLORIDE 116 MMOL/L (99-107); GLUCOSE 168 MG/DL (70-104); POTASSIUM 3.8 MMOL/L (3.5-5.1); SODIUM 150 MMOL/L (135-145); TOTAL CARBON DIOXIDE 24.3 MMOL/L (24-32); TOTAL PROTEIN 6.1 G/DL (6.4-8.2); eCRCL 101 ML/MIN; eGFR > 90 ML/MIN
[2025-04-02] MEDS ORDERED: methylPREDNISolone sod succ 125mg/2ml vial IV SCH (09:54)
[2025-04-02] MEDS: VANCOMYCIN LEVEL IV ONE (11:30)
--- NOTE | 2025-04-02 13:13 | PROGRESS NOTE- Residence ---
Progress Note - Resident Providers to CC Resident Creating Document: MARK LEBRON RES ~ Antibiotic Timeout Antibiotic Ordered?: Yes Subjective Patient examined at bedside. He is feeling better, oxygen requirement decreased to 3 L. Solu-Medrol taper down from 60 Q8H to 40 mg IV twice daily. Serum sodium is 150, NS discontinued, half NS initiated 100 mL/hours Procalcitonin ordered along with a hemoglobin A1c, TSH, and lipid panel Mucomyst initiated for expectoration ID consulted, waiting for evaluation and recommendations I spoke with the patient's [place] physician; ([phone]), and inform him of the patient's current condition, lab findings, imaging results, and overall prognosis. 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 He also noted that arrangement for senior living facility placement have already been made in the patient is expected to be transferred once clinically stable. Objective Vital Signs Date Time Temp Pulse Resp B/P (MAP) Pulse Ox O2 Delivery O2 Flow Rate FiO2 04/02/25 11:00 97.0 84 30 114/60 (78) 95 04/02/25 10:40 Nasal Cannula* 3 32 General: Cachectic, Alert, awake, oriented, not in acute distress HEENT: PERRLA, no icterus, pallor, lymphadenopathy, carotid bruit Respiratory/chest: Decreased breath sounds on the left side in all lung zones, inspiratory crackles present in right middle and lower zones CVS: S1-S2 heard, no murmurs/rubs/gallop GI: Soft, nontender, no organomegaly, no guarding/rigidity, bowel sounds present Neuro: No focal neurological deficits present Extremities: No edema cyanosis clubbing/deformities Skin: Warm and dry Result Diagram: 04/02/25 0549 04/02/25 0549 Coagulation Studies Laboratory Tests Test 03/30/25 14:08 Prothrombin Time 17.3 SECONDS (9.0-12.0) H INR International Normalized Ratio 1.8 INR Activated Partial Thromboplast Time 21 SECONDS (22-32) L Coagulation Comments Advance Care Planning Advanced Care plannin - 30 Minutes Assessment Assessment A 73-year-old male active smoker with history of COPD and lung cancer presented to the ED for progressive worsening of shortness of breaths and cough. Patient was admitted for the evaluation management of community-acquired pneumonia, COPD exacerbation and UTI. Plan Plan Acute hypoxemic respiratory failure 2/2 Community-acquired pneumonia Gram-positive, Gram-negative, and anaerobic coverage Acute COPD exacerbation MRSA bacteremia, MRSA UTI, MRSA pneumonia WBC trending down Blood cultures positive for Gram-positive cocci in clusters Follow up with sputum culture On 3 L oxygen via nasal cannula - Keep oxygen saturation between 89 and 90%, IV hydration; received 2 L NS bolus in ER, ordered another 1 L bolus. Continue NS 125 mL/hours Keep MEP > 65, if hypotension persists with IV hydration, we will initiate vasopressors Monitor lactic acid level, we will repeat in 4 hours Initiated empiric broad-spectrum antibiotics i.e. vancomycin and Zosyn (day 4) Monitor hemodynamic instability closely Urinary tract infection: UA suggestive of UTI Cultures positive for MRSA and Klebsiella On broad-spectrum antibiotics as per above Acute kidney injury: 2/2 renal tubular stasis, resolved Continue IV hydration Monitor BMP closely Microcytic hypochromic anemia: Monitor H&H closely, transfuse when indicated; hemoglobin < 7.0 Iron studies suggest anemia of chronic disease April 01, 2025: Respiratory culture grew Gram-positive cocci and Gram-negative rods Urine culture grows Klebsiella pneumoniae, and MRSA Blood culture shows Gram-positive cocci in cluster Consulted raw mill operator for diagnostic and therapeutic thoracentesis. Concluded small pleural effusion, less amenable to tap We will continue vancomycin and Zosyn, ID consult is requested. April 02, 2025: Solu-Medrol taper down from 60 Q8H to 40 mg IV twice daily. Serum sodium is 150, NS discontinued, half NS initiated 100 mL/hours Procalcitonin ordered along with a hemoglobin A1c, TSH, and lipid panel Mucomyst initiated for expectoration ID consulted, waiting for evaluation and recommendations Code Status: Full DVT prophylaxis: Heparin subQ Analgesia/sedation: Tylenol as needed Line/tube: PIV GI prophylaxis: Protonix Nutrition: NPO until cleared by speech/swallow PT: Yes Prognosis: Guarded Critical care: Spent a total of 35 minutes providing critical care to this patient. Time was devoted to continuous monitoring, reviewing labs and imaging, managing hemodynamics, coordinating care with ID, and discussing prognosis and plan with the family. Patient's condition was guarded and required high complexity medical decision making. Disposition: We will continue treating him in PCU in isolation because of MRSA. Consulted ID. After becoming stable, patient will be DC to [place] rehab. Mark Lebron Internal Medicine Resident Date of Service: April 02, 2025 Billing Provider: KETTY CARRION MD Common Visit Codes: [id number] CARE 30-74 MIN MARK LEBRON, RES April 02, 2025 13:13 KETTY CARRION MD April 10, 2025 17:36
[2025-04-02] MEDS: sodium chloride 0.45% 1,000 ML IV SCH (13:25)
[2025-04-02 13:45] LABS: CHOL/HDL RATIO 3.8 (0.00-4.99); CHOLESTEROL 84 MG/DL (0-200); HDL CHOLESTEROL 22 MG/DL (35-60); LDL CHOLESTEROL 37 MG/DL (50-100); THYROID STIMULATING HORMONE 3.17 ulU/ml (0.34-4.50); TRIGLYCERIDES 89 MG/DL (20-135)
[2025-04-02] MEDS: acetylcysteine 200 MG/ml 4ml vial INH SCH (15:12)
[2025-04-02 17:31] LABS: HEMOGLOBIN A1C 7.4 % (4.5-6.2)
[2025-04-02] MEDS: methylPREDNISolone sod succ 125mg/2ml vial IV SCH (19:34)
--- NOTE | 2025-04-02 22:03 | CONSULTATION REPORT ---
Consult Consult Consultation Reason for Consult: Bacteremia Consulting Provider: Dr. Santamaria Antibiotic Days: Vanc 2, Zosyn 2 Lines: PIV Micro: 03/30 Blood- MRSA 03/30 Urine- Kleb, MRSA 03/31 Sputum- Kleb, MRSA HPI: Patient is a 79 year old male with a past medical history of COPD, lung cancer (s/p resection, XRT) who presented to [facility] on 03/30 for cough and shortness of breath. He had been requiring 2L around the clock. Workup in the ER suggested pneumonia and because he was from the [place] home, he was admitted on Vanco, Zosyn. ID is now asked to consult because blood cultures have grown MRSA. On today's exam, patient was quite somnolent but his daughter at bedside answered questions about his history. She denied any issues with his heart valves nor indwelling devices. No back pain. He has no known antibiotic allergies. Past Medical/Surgical History: COPD, lung cancer Current Medications Medications (Trade) Dose Ordered Sig/Giorgio Route PRN Reason Start Time Stop Time Status Last Admin Dose Admin Ceftriaxone Sodium/Dextrose 50 ml @ 100 mls/hr ONCE ONCE IV 03/30/25 09:30 03/30/25 09:59 DC 03/30/25 10:00 100 MLS/HR Sodium Chloride (sodium chloride 1000ml IV soln) 2,000 ml ONCE ONCE IV 03/30/25 09:30 03/30/25 09:31 DC 03/30/25 09:38 2,000 ML Albuterol (Proventil 2.5 MG/3ML nebule) 5 mg ONCE ONCE NEB 03/30/25 10:00 03/30/25 10:01 DC 03/30/25 10:12 5 MG Methylprednisolone Sodium Succinate (Solu-Medrol 40mg inj.) 125 mg ONCE ONCE IV 03/30/25 10:05 03/30/25 10:06 DC 03/30/25 10:10 125 MG Heparin Sodium (Porcine) (heparin, porcine 5000 unit/ ml 1ml vial) 5,000 unit Q12H SQ 03/30/25 20:00 04/02/25 19:33 5,000 UNIT Sodium Chloride 1,000 ml @ 75 mls/hr [id number] IV 03/30/25 11:30 04/02/25 12:32 DC 04/01/25 03:00 75 MLS/HR Potassium Chloride (K-DUR tablet) 20 meq Q4H PRN PO Potassium 3.1-3.4 03/30/25 11:30 04/02/25 11:29 DC 04/01/25 19:45 20 MEQ Potassium Chloride (K-DUR tablet) 40 meq Q4H PRN PO Potassium 3.0 or less 03/30/25 11:30 04/02/25 11:29 DC 03/31/25 19:35 40 MEQ Piperacillin/ Tazobactam/ Dextrose 50 ml @ 12.5 mls/hr Q8H IV 03/30/25 16:00 04/02/25 10:14 DC 04/02/25 08:49 12.5 MLS/HR Albuterol/ Ipratropium (ipratrop/ albuterol 0.5-3(2.5) MG/3ml nebule) 3 ml Q4HRT NEB 03/30/25 15:00 04/02/25 19:06 3 ML Methylprednisolone Sodium Succinate (Solu-Medrol 40mg inj.) 40 mg DAILY IV 03/31/25 08:00 03/31/25 14:42 DC 03/31/25 08:19 40 MG Sodium Chloride 1,000 ml @ 1,000 mls/hr ONCE ONCE IV 03/30/25 11:40 03/30/25 12:39 DC 03/30/25 12:22 1,000 MLS/HR Vancomycin HCl 400 ml @ 134 mls/hr ONCE ONCE IV 03/30/25 11:50 03/30/25 14:49 DC 03/30/25 12:26 134 MLS/HR Pantoprazole Sodium (Protonix 40mg IV) 40 mg DAILY IV 03/30/25 20:00 04/02/25 08:49 40 MG Vancomycin HCl 250 ml @ 166 mls/hr Q24H@1200 IV 03/31/25 12:00 04/02/25 13:44 DC 04/02/25 13:23 166 MLS/HR Guaifenesin (MuciNEX tablet) 600 mg Q12H PO 03/31/25 09:55 04/02/25 19:33 600 MG Methylprednisolone Sodium Succinate (Solu-Medrol 40mg inj.) 40 mg Q8H IV 03/31/25 16:00 04/02/25 09:54 DC 04/02/25 00:49 40 MG Methylprednisolone Sodium Succinate (SoluMEDROL 125mg inj) 40 mg Q12H IV 04/02/25 20:00 04/02/25 19:34 40 MG Sodium Chloride 1,000 ml @ 100 mls/hr Q10H IV 04/02/25 12:20 04/02/25 13:25 100 MLS/HR Acetylcysteine (MucoMYST solution) 400 mg BID INH 04/02/25 12:35 04/05/25 12:34 04/02/25 19:06 400 MG Social History: Lives at the [place] Family History: Noncontributory ROS: As in HPI, otherwise limited by somnolence Objective: Vitals: Afebrile, 80, 29, 114/59, 93% on 2L General: Somnolent, NAD HEENT: NC/AT, normal conjunctiva, no oral lesions CV: Regular Resp: Coarse sounds on R Abd: Soft, nontender, nondistended Ext: No peripheral stigmata of IE Lines: PIV ok Laboratory Tests 04/02/25 05:49 03/30 CT Large left pleural effusion with consolidation. Extensive soft tissue density within the mediastinum. Findings suggest pleural effusion with neoplastic process. Superimposed infection can not be excluded. 04/01 Echo Normal LV size and wall thickness. Overall systolic function is normal. LVEF is 60%. RV is moderately dilated in size with normal function. The left atrium size is normal. Trileaflet AV appears mildly sclerotic without stenosis or insufficiency. Mild MV annular calcification without stenosis. Mild regurgitation. TV appears structurally normal with trace regurgitation. Small posterior pericardial effusion without hemodynamic compromise. Assessment: // MRSA septicemia, source is lungs. Valves ok on 2D echo. No repeats yet // L Pneumonia - cultures with MRSA as above and Klebsiella // Leukocytosis on admission is resolved // Protein gap // COPD with PRN O2 at baseline // Hx lung cancer s/p resection and XRT // Antibiotic Allergies: none known Plan: - Continue Vanco - Change Zosyn to Rocephin - Repeat blood cultures to ensure clearance - Anticipate need for 2 weeks of therapy; please hold indwelling access until blood cultures clear - Monitor WBC, count, O2 requirement - Pulmonary toilet - [facility] - Thank you for the consult, will continue to follow TRANG SMITH DO April 02, 2025 22:03
[2025-04-03] VITALS (17 sets, daily range): BP systolic 96–122; BP diastolic 48–68; PULSE 46–96; RESP 18–32; TEMP 96.8–98.1; O2SAT 90–98
[2025-04-03] MEDS: vancomycin/NS 1 GM ADD-VANTAGE 250 ML IV SCH (01:07)
[2025-04-03 06:15] LABS: BASOPHILS % (AUTO) 0.2 % (0-1); EOSINOPHILS % (AUTO) 0.1 % (0-6); HEMATOCRIT 25.7 % (42.0-52.0); HEMOGLOBIN 8.2 g/dl (14.0-17.9); LYMPHOCYTES # (AUTO) 0.9 X10'3 (1.1-4.8); LYMPHOCYTES % (AUTO) 10.9 % (21-51); MEAN CORPUSCULAR HEMOGLOBIN 24.7 PG (27.0-31.0); MEAN CORPUSCULAR HGB CONC 31.8 g/dL (33.0-36.5); MEAN CORPUSCULAR VOLUME 77.5 FL (78-98); MEAN PLATELET VOLUME 9.2 FL (7.4-10.4); MONOCYTES # (AUTO) 0.6 X10'3 (0-0.9); NEUTROPHILS # (AUTO) 6.5 X10'3 (1.8-7.7); NEUTROPHILS % (AUTO) 81.8 % (42-75); PLATELET COUNT 245 X10'3 (140-440); RED BLOOD COUNT 3.31 X10'6 (4.70-6.10); RED CELL DISTRIBUTION WIDTH 18.4 % (11.5-14.5)
[2025-04-03 06:29] LABS: ALANINE AMINOTRANSFERASE 19 U/L (12-78); ALBUMIN 0.9 G/DL (3.4-5.0); ALBUMIN/GLOBULIN RATIO 0.2 (1.1-1.5); ALKALINE PHOSPHATASE 57 IU/L (46-116); ANION GAP 5 (8-16); ASPARTATE AMINO TRANSFERASE 18 U/L (10-37); BILIRUBIN,TOTAL 0.2 MG/DL (0.1-1.0); BLOOD UREA NITROGEN 27 MG/DL (7-18); BUN/CREATININE RATIO 43.5 (10.0-20.0); CALCIUM 8.7 MG/DL (8.5-10.1); CREATININE 0.62 MG/DL (0.60-1.10); GLUCOSE 191 MG/DL (70-104); POTASSIUM 3.5 MMOL/L (3.5-5.1); SODIUM 145 MMOL/L (135-145); TOTAL CARBON DIOXIDE 25.5 MMOL/L (24-32); eCRCL 98 ML/MIN; eGFR > 90 ML/MIN
[2025-04-03 06:31] LABS: CHLORIDE 115 MMOL/L (99-107)
[2025-04-03] MEDS ORDERED: dextrose 50%-water 50ml dispensing syringe IV PRN ×2 (08:40)
[2025-04-03] MEDS ORDERED: glucagon, human recombinant 1mg kit SUBCUT PRN (08:40)
[2025-04-03] MEDS ORDERED: DEXTROSE 15 GM of carb/4 tabs (each vial/BOTTLE has 4 tablets) PO PRN ×2 (08:40)
[2025-04-03] MEDS: CefTRIAXone 2gm/D5W 50ml BAG 50 ML IV SCH (08:54)
[2025-04-03] MEDS: INSULIN LISPRO 100 UNIT/ML INSULN.PEN MULTI-DOSE SQ SCH ×2 (09:00→12:00)
[2025-04-03] MEDS: lactose-reduced food (Ensure Enlive) - 237ml bottle PO SCH (13:00)
--- NOTE | 2025-04-03 15:51 | PROGRESS NOTE- Residence ---
Progress Note - Resident Providers to CC Resident Creating Document: MARK LEBRON RES ~ Antibiotic Timeout Antibiotic Ordered?: Yes Subjective Patient examined at bedside in the presence of his daughter. He is feeling better, oxygen requirement decreased to 3 L. he has newly diagnosed diabetes type 2, hyperglycemia/hypoglycemia protocol in place. On carb controlled diet. Objective Vital Signs Date Time Temp Pulse Resp B/P (MAP) Pulse Ox O2 Delivery O2 Flow Rate FiO2 04/03/25 15:44 89 18 96 Nasal Cannula* 3 32 04/03/25 10:38 98.0 116/64 (81) General: Cachectic, Alert, awake, oriented, not in acute distress HEENT: PERRLA, no icterus, pallor, lymphadenopathy, carotid bruit Respiratory/chest: Decreased breath sounds on the left side in all lung zones, inspiratory crackles present in right middle and lower zones CVS: S1-S2 heard, no murmurs/rubs/gallop GI: Soft, nontender, no organomegaly, no guarding/rigidity, bowel sounds present Neuro: No focal neurological deficits present Extremities: No edema cyanosis clubbing/deformities Skin: Warm and dry Result Diagram: 04/03/25 0546 04/03/25 0546 Coagulation Studies Laboratory Tests Test 03/30/25 14:08 Prothrombin Time 17.3 SECONDS (9.0-12.0) H INR International Normalized Ratio 1.8 INR Activated Partial Thromboplast Time 21 SECONDS (22-32) L Coagulation Comments Advance Care Planning Advanced Care plannin - 30 Minutes Assessment Assessment A 73-year-old male active smoker with history of COPD and lung cancer presented to the ED for progressive worsening of shortness of breaths and cough. Patient was admitted for the evaluation management of community-acquired pneumonia, COPD exacerbation and UTI. Plan Plan Acute hypoxemic respiratory failure 2/2 Community-acquired pneumonia Acute COPD exacerbation MRSA septicemia, MRSA UTI, MRSA pneumonia 03/30 Blood- MRSA 03/30 Urine- Kleb, MRSA 03/31 Sputum- Kleb, MRSA On 3 L oxygen via nasal cannula - Keep oxygen saturation between 89 and 90%, IV hydration; received 2 L NS bolus in ER, ordered another 1 L bolus. Continue NS 125 mL/hours Keep MEP > 65, if hypotension persists with IV hydration, we will initiate vasopressors Monitor lactic acid level, normalized Initially empiric broad-spectrum antibiotics i.e. vancomycin and Zosyn (day 6). Now, MRSA septicemia coverage Monitor hemodynamic instability closely Urinary tract infection: UA suggestive of UTI Cultures positive for MRSA and Klebsiella On broad-spectrum antibiotics as per above Acute kidney injury: 2/2 renal tubular stasis, resolved Continue IV hydration Monitor BMP closely Microcytic hypochromic anemia: Monitor H&H closely, transfuse when indicated; hemoglobin < 7.0 Iron studies suggest anemia of chronic disease Newly diagnosed DM type 2: A1C 7.4 Hyperglycemia/hypoglycemia protocol in place Carb controlled diet Diabetes education provided by visual manager April 01, 2025: Respiratory culture grew Gram-positive cocci and Gram-negative rods Urine culture grows Klebsiella pneumoniae, and MRSA Blood culture shows Gram-positive cocci in cluster Consulted prop worker for diagnostic and therapeutic thoracentesis. Concluded small pleural effusion, less amenable to tap We will continue vancomycin and Zosyn, ID consult is requested. April 02, 2025: Solu-Medrol taper down from 60 Q8H to 40 mg IV twice daily. Serum sodium is 150, NS discontinued, half NS initiated 100 mL/hours Procalcitonin ordered along with a hemoglobin A1c, TSH, and lipid panel Mucomyst initiated for expectoration ID consulted, waiting for evaluation and recommendations I spoke with the [facility] [facility]; ([phone]), and inform him of the patient's current condition, lab findings, imaging results, and overall prognosis. 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 He also noted that arrangement for halfway facility placement have already been made in the patient is expected to be transferred once clinically stable. April 03, 2024: Serum sodium is 145, responded well to half NS, continue 100 mL/hours WBC 8.0, trended down from 22.2 on board, appreciate recommendations - Continue Vanco - Change Zosyn to Rocephin - Repeat blood cultures to ensure clearance - Anticipate need for 2 weeks of therapy; please hold indwelling access until blood cultures clear Hemoglobin A1c 7.4, newly diagnosed DM type 2. Hyperglycemia/hypoglycemia protocol in place, low carb diet TSH and lipid panel within reference ranges Code Status: Full DVT prophylaxis: Heparin subQ Analgesia/sedation: Tylenol as needed Line/tube: PIV GI prophylaxis: Protonix Nutrition: NPO until cleared by speech/swallow PT: Yes Prognosis: Guarded Disposition: We will continue treating him in PCU in isolation because of MRSA septicemia. ID on board. After becoming stable, patient will be DC to [place] rehab. Critical care time 35 minutes Mark Lebron Internal Medicine Resident Date of Service: April 03, 2025 Billing Provider: KETTY CARRION MD Common Visit Codes: [id number] CARE 30-74 MIN MARK LEBRON, RES April 03, 2025 15:51 KETTY CARRION MD April 10, 2025 17:36
[2025-04-04] VITALS (20 sets, daily range): BP systolic 109–134; BP diastolic 56–68; PULSE 70–88; RESP 14–22; TEMP 97.2–98.2; O2SAT 90–99
[2025-04-04] MEDS: VANCOMYCIN LEVEL IV ONE ×2 (00:52→15:30)
[2025-04-04 01:32] LABS: ALANINE AMINOTRANSFERASE 27 U/L (12-78); ALBUMIN 0.9 G/DL (3.4-5.0); ALBUMIN/GLOBULIN RATIO 0.2 (1.1-1.5); ALKALINE PHOSPHATASE 63 IU/L (46-116); ANION GAP 5 (8-16); ASPARTATE AMINO TRANSFERASE 21 U/L (10-37); BILIRUBIN,TOTAL 0.2 MG/DL (0.1-1.0); BLOOD UREA NITROGEN 22 MG/DL (7-18); BUN/CREATININE RATIO 44.9 (10.0-20.0); CALCIUM 8.6 MG/DL (8.5-10.1); CHLORIDE 110 MMOL/L (99-107); CREATININE 0.49 MG/DL (0.60-1.10); GLUCOSE 183 MG/DL (70-104); POTASSIUM 3.8 MMOL/L (3.5-5.1); SODIUM 142 MMOL/L (135-145); TOTAL CARBON DIOXIDE 26.6 MMOL/L (24-32); VANCOMYCIN,TROUGH 9.8 ug/mL (10.0-20.0); eCRCL 124 ML/MIN; eGFR > 90 ML/MIN
[2025-04-04 06:32] LABS: BASOPHILS % (AUTO) 0.2 % (0-1); EOSINOPHILS % (AUTO) 0 % (0-6); HEMATOCRIT 28.2 % (42.0-52.0); HEMOGLOBIN 8.8 g/dl (14.0-17.9); LYMPHOCYTES # (AUTO) 0.9 X10'3 (1.1-4.8); MEAN CORPUSCULAR HEMOGLOBIN 24.5 PG (27.0-31.0); MEAN CORPUSCULAR HGB CONC 31.3 g/dL (33.0-36.5); MEAN CORPUSCULAR VOLUME 78.3 FL (78-98); MEAN PLATELET VOLUME 9.7 FL (7.4-10.4); MONOCYTES # (AUTO) 0.5 X10'3 (0-0.9); MONOCYTES % (AUTO) 6.8 % (2-12); NEUTROPHILS # (AUTO) 5.2 X10'3 (1.8-7.7); PLATELET COUNT 251 X10'3 (140-440); RED CELL DISTRIBUTION WIDTH 18.4 % (11.5-14.5); WHITE BLOOD COUNT 6.6 X10'3 (4.5-11.0)
[2025-04-04] MEDS: pantoprazole 40mg Tablet.DR PO SCH (08:59)
--- NOTE | 2025-04-04 11:17 | PROGRESS NOTE- Residence ---
Progress Note - Resident Providers to CC Resident Creating Document: MARK LEBRON RES ~ Antibiotic Timeout Antibiotic Ordered?: Yes Subjective Patient examined at bedside in the presence of his daughter. Perfusing well with 3 L supplemental oxygen via nasal cannula. No overnight issues event reported. Perfusing well with 3 L supplemental oxygen via nasal cannula Shortness of breath has significantly improved WBC normalized, last protocol still elevated. We will monitor protocol every day Requested IR for diagnostic thoracentesis Nurse noticed black tarry stool, stool occult blood test ordered Sustained a minor fall, no head injury. Oriented x4. Fall precautions in place Objective Vital Signs Date Time Temp Pulse Resp B/P (MAP) Pulse Ox O2 Delivery O2 Flow Rate FiO2 04/04/25 07:21 78 20 Nasal Cannula 3.0 04/04/25 07:20 98 36 04/04/25 02:00 98.2 119/62 (81) General: Cachectic, Alert, awake, oriented, not in acute distress HEENT: PERRLA, no icterus, pallor, lymphadenopathy, carotid bruit Respiratory/chest: Decreased breath sounds on the left side in all lung zones, [id number] inspiratory crackles present in right middle and lower zones CVS: S1-S2 heard, no murmurs/rubs/gallop GI: Soft, nontender, no organomegaly, no guarding/rigidity, bowel sounds present Neuro: No focal neurological deficits present Extremities: No edema cyanosis clubbing/deformities Skin: Warm and dry Result Diagram: 04/04/25 0548 04/04/25 0045 Coagulation Studies Laboratory Tests Test 03/30/25 14:08 Prothrombin Time 17.3 SECONDS (9.0-12.0) H INR International Normalized Ratio 1.8 INR Activated Partial Thromboplast Time 21 SECONDS (22-32) L Coagulation Comments Advance Care Planning Advanced Care plannin - 30 Minutes Assessment Assessment A 73-year-old male active smoker with history of COPD and lung cancer presented to the ED for progressive worsening of shortness of breaths and cough. Patient was admitted for the evaluation management of community-acquired pneumonia, COPD exacerbation and UTI. Plan Plan Acute hypoxemic respiratory failure Acute COPD exacerbation MRSA septicemia, MRSA UTI, MRSA pneumonia 03/30 Blood- MRSA 03/30 Urine- Kleb, MRSA 03/31 Sputum- Kleb, MRSA On 3 L oxygen via nasal cannula - Keep oxygen saturation between 89 and 90%, IV hydration; received 2 L NS bolus in ER, ordered another 1 L bolus. Continue NS 125 mL/hours Keep MEP > 65, if hypotension persists with IV hydration, we will initiate vasopressors Monitor lactic acid level, normalized Initially empiric broad-spectrum antibiotics i.e. vancomycin and Zosyn (day 6). Now, MRSA septicemia coverage Monitor hemodynamic instability closely Urinary tract infection: UA suggestive of UTI Cultures positive for MRSA and Klebsiella On broad-spectrum antibiotics as per above Acute kidney injury: 2/2 renal tubular stasis, resolved Continue IV hydration Monitor BMP closely Microcytic hypochromic anemia: Monitor H&H closely, transfuse when indicated; hemoglobin < 7.0 Iron studies suggest anemia of chronic disease On ferrous sulfate Newly diagnosed DM type 2: A1C 7.4 Hyperglycemia/hypoglycemia protocol in place Carb controlled diet Diabetes education provided by perfume maker Hypernatremia: Resolved April 01, 2025: Respiratory culture grew Gram-positive cocci and Gram-negative rods Urine culture grows Klebsiella pneumoniae, and MRSA Blood culture shows Gram-positive cocci in cluster Consulted drone software development engineer for diagnostic and therapeutic thoracentesis. Concluded small pleural effusion, less amenable to tap We will continue vancomycin and Zosyn, ID consult is requested. April 02, 2025: Solu-Medrol taper down from 60 Q8H to 40 mg IV twice daily. Serum sodium is 150, NS discontinued, half NS initiated 100 mL/hours Procalcitonin ordered along with a hemoglobin A1c, TSH, and lipid panel Mucomyst initiated for expectoration ID consulted, waiting for evaluation and recommendations I spoke with the patient[facility]; ([phone]), and inform him of the patient's current condition, lab findings, imaging results, and overall prognosis. 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 He also noted that arrangement for detention facility placement have already been made in the patient is expected to be transferred once clinically stable. April 03, 2024: Serum sodium is 145, responded well to half NS, continue 100 mL/hours WBC 8.0, trended down from 22.2 on board, appreciate recommendations - Continue Vanco - Change Zosyn to Rocephin - Repeat blood cultures to ensure clearance - Anticipate need for 2 weeks of therapy; please hold indwelling access until blood cultures clear Hemoglobin A1c 7.4, newly diagnosed DM type 2. Hyperglycemia/hypoglycemia protocol in place, low carb diet TSH and lipid panel within reference ranges April 04, 2025: Perfusing well with 3 L supplemental oxygen via nasal cannula Shortness of breath has significantly improved WBC normalized, last protocol still elevated. We will monitor protocol every day Requested IR for diagnostic thoracentesis Nurse noticed black tarry stool, stool occult blood test ordered Sustained a minor fall, no head injury. Oriented x4. Fall precautions in place Patient we will go to [place] SNF probably on Tuesday. Code Status: Full DVT prophylaxis: Heparin subQ Analgesia/sedation: Tylenol as needed Line/tube: PIV GI prophylaxis: Protonix Nutrition: NPO until cleared by speech/swallow PT: Yes Prognosis: Guarded Disposition: We will continue treating him in PCU in isolation because of MRSA septicemia. ID on board. After becoming stable, patient will be DC to [place] rehab. [facility] Internal [facility] Resident Date of Service: April 04, 2025 Billing Provider: KETTY CARRION MD Common Visit Codes: [id number] CARE 30-74 MIN (Critical care time 35 minutes) MARK LEBRON, RES April 04, 2025 11:17 KETTY CARRION MD April 10, 2025 17:37
--- NOTE | 2025-04-04 11:39 | PROGRESS NOTE ---
Progress Note ID Providers to CC ~ Progress Note Progress Note: Antibiotic Days: Vanc 4, Rocephin 2 Lines: PIV Micro: 03/30 Blood- MRSA 03/30 Urine- Kleb, MRSA 03/31 Sputum- Kleb, MRSA 04/03 Blood- GPC in clusters Subjective: Patient was alert and interactive today, however seen just after being found on the floor. He had no complaints and expressed appreciation for the update: blood cultures still positive and will be redrawn Objective: Vitals: Afebrile, 80, 18, 119/62, 98% on 4L General: Alert, NAD CV: Regular Resp: Coarse sounds still though improved from before Abd: Soft, nontender, nondistended Ext: No peripheral stigmata of IE Lines: PIV ok Laboratory Tests 04/04/25 00:45 04/04/25 05:48 Assessment: // MRSA septicemia, source is lungs. Valves ok on 2D echo. Repeats 04/03 again positive // L Pneumonia - cultures with MRSA as above and Klebsiella // Protein gap // COPD with PRN O2 at baseline // Hx lung cancer s/p resection and XRT // Antibiotic Allergies: none known Plan: - Continue Vanco and Rocephin - Repeat blood cultures to ensure clearance - Duration to depend on ease of clearance; please hold indwelling access until blood cultures clear - If he can't clear, then may need repeat imaging of his chest to assess for loculations - Monitor WBC, count, O2 requirement - Pulmonary toilet - Dispo planning: [place] SNF - Will continue to follow TRANG SMITH DO April 04, 2025 11:39
[2025-04-04] MEDS: ferrous sulfate 325mg tablet PO SCH (13:43)
[2025-04-04] MEDS: vancomycin/NS 1 GM ADD-VANTAGE 250 ML IV SCH ×2 (13:43→17:01)
[2025-04-04] MEDS ORDERED: vancomycin/NS 1 GM ADD-VANTAGE 250 ML IV SCH ×2 (14:46→15:54)
[2025-04-04] MEDS: pantoprazole 40 MG vial IV SCH (18:00)
[2025-04-04] MEDS ORDERED: pantoprazole 40 MG vial IV SCH (18:25)
[2025-04-05] VITALS (20 sets, daily range): BP systolic 125–170; BP diastolic 57–67; PULSE 43–88; RESP 12–25; TEMP 96.8–98.2; O2SAT 93–98
[2025-04-05] MEDS: pantoprazole 40 MG vial IV SCH (07:31)
--- NOTE | 2025-04-05 09:35 | RADIOLOGY REPORT ---
EXAM: DI CHEST,SINGLE VIEW HISTORY: F/U COMPARISON: DI CHEST,SINGLE VIEW on DOS: 03/30/25, CT scan of the chest dated 03/30/2025 TECHNIQUE: Portable semi-erect AP view of the chest was performed. FINDINGS: There is complete opacification of the left hemithorax, with leftward shift of the heart and mediasti num. The cardiac margins are obscured. There is interstitial prominence in the right lung, greater centrally. Emphysematous changes of the right upper lobe are better characterized on prior CT scan. M ediastinal mass seen on recent CT scan is not appreciated on the current plain film study. No pneumot horax. Surgical clips overlie the left upper chest. IMPRESSION: 1. Complete opacification of the left hemithorax with leftward shift of the heart and mediastinum. T his appearance may be due to any combination of progressive atelectasis, pneumonia, and/or malignancy . 2. Right lung interstitial prominence may be due to reactive airways disease or CHF. 3. Emphysema.
[2025-04-05 12:26] LABS: BASOPHILS % (AUTO) 0.1 % (0-1); EOSINOPHILS % (AUTO) 0 % (0-6); HEMATOCRIT 26.4 % (42.0-52.0); HEMOGLOBIN 8.6 g/dl (14.0-17.9); LYMPHOCYTES # (AUTO) 0.9 X10'3 (1.1-4.8); LYMPHOCYTES % (AUTO) 10.2 % (21-51); MEAN CORPUSCULAR HEMOGLOBIN 24.9 PG (27.0-31.0); MEAN CORPUSCULAR HGB CONC 32.4 g/dL (33.0-36.5); MEAN CORPUSCULAR VOLUME 76.8 FL (78-98); MEAN PLATELET VOLUME 9.8 FL (7.4-10.4); MONOCYTES # (AUTO) 0.5 X10'3 (0-0.9); MONOCYTES % (AUTO) 5.3 % (2-12); NEUTROPHILS # (AUTO) 7.5 X10'3 (1.8-7.7); NEUTROPHILS % (AUTO) 84.4 % (42-75); PLATELET COUNT 267 X10'3 (140-440); RED BLOOD COUNT 3.44 X10'6 (4.70-6.10); RED CELL DISTRIBUTION WIDTH 17.9 % (11.5-14.5); WHITE BLOOD COUNT 8.8 X10'3 (4.5-11.0)
[2025-04-05 12:46] LABS: ALANINE AMINOTRANSFERASE 29 U/L (12-78); ALBUMIN 1.1 G/DL (3.4-5.0); ALBUMIN/GLOBULIN RATIO 0.2 (1.1-1.5); ALKALINE PHOSPHATASE 63 IU/L (46-116); ANION GAP 6 (8-16); ASPARTATE AMINO TRANSFERASE 16 U/L (10-37); BILIRUBIN,TOTAL 0.3 MG/DL (0.1-1.0); BLOOD UREA NITROGEN 14 MG/DL (7-18); BUN/CREATININE RATIO 26.4 (10.0-20.0); CALCIUM 8.6 MG/DL (8.5-10.1); CHLORIDE 104 MMOL/L (99-107); CREATININE 0.53 MG/DL (0.60-1.10); GLUCOSE 140 MG/DL (70-104); POTASSIUM 3.5 MMOL/L (3.5-5.1); SODIUM 138 MMOL/L (135-145); TOTAL CARBON DIOXIDE 28.4 MMOL/L (24-32); TOTAL PROTEIN 6.2 G/DL (6.4-8.2); eCRCL 115 ML/MIN; eGFR > 90 ML/MIN
--- NOTE | 2025-04-05 15:10 | PROGRESS NOTE- Residence ---
Progress Note - Resident Providers to CC Resident Creating Document: MARK LEBRON RES ~ Antibiotic Timeout Antibiotic Ordered?: Yes Subjective Patient examined at bedside in the presence of his daughter. Perfusing well with 3 L supplemental oxygen via nasal cannula. No overnight issues event reported. Perfusing well with 3 L supplemental oxygen via nasal cannula Shortness of breath has significantly improved WBC normal, procalcitonin normalized Oriented x4. Fall precautions in place Objective Vital Signs Date Time Temp Pulse Resp B/P (MAP) Pulse Ox O2 Delivery O2 Flow Rate FiO2 04/05/25 12:00 88 145/66 (92) 04/05/25 11:31 12 Room Air 21 04/05/25 11:25 96 0 04/05/25 11:00 98.1 General: Cachectic, Alert, awake, oriented, not in acute distress HEENT: PERRLA, no icterus, pallor, lymphadenopathy, carotid bruit Respiratory/chest: Decreased breath sounds on the left side in all lung zones, [id number] inspiratory crackles present in right middle and lower zones CVS: S1-S2 heard, no murmurs/rubs/gallop GI: Soft, nontender, no organomegaly, no guarding/rigidity, bowel sounds present Neuro: No focal neurological deficits present Extremities: No edema cyanosis clubbing/deformities Skin: Warm and dry Result Diagram: 04/05/25 1147 04/05/25 1147 Coagulation Studies Laboratory Tests Test 03/30/25 14:08 Prothrombin Time 17.3 SECONDS (9.0-12.0) H INR International Normalized Ratio 1.8 INR Activated Partial Thromboplast Time 21 SECONDS (22-32) L Coagulation Comments Assessment Assessment A 73-year-old male active smoker with history of COPD and lung cancer presented to the ED for progressive worsening of shortness of breaths and cough. Patient was admitted for the evaluation management of community-acquired pneumonia, COPD exacerbation and UTI. Plan Plan Acute hypoxemic respiratory failure Acute COPD exacerbation MRSA septicemia, MRSA UTI, MRSA pneumonia, possible postobstructive pneumonia 03/30 Blood- MRSA 03/30 Urine- Kleb, MRSA 03/31 Sputum- Kleb, MRSA On 3 L oxygen via nasal cannula - Keep oxygen saturation between 89 and 90%, IV hydration; received 2 L NS bolus in ER, ordered another 1 L bolus. Continue NS 125 mL/hours Keep MEP > 65, if hypotension persists with IV hydration, we will initiate vasopressors Monitor lactic acid level, normalized Initially empiric broad-spectrum antibiotics i.e. vancomycin and Zosyn (day 6). Now, MRSA septicemia coverage Monitor hemodynamic instability closely Urinary tract infection: UA suggestive of UTI Cultures positive for MRSA and Klebsiella On broad-spectrum antibiotics as per above Acute kidney injury: 2/2 renal tubular stasis, resolved Continue IV hydration Monitor BMP closely Microcytic hypochromic anemia: Monitor H&H closely, transfuse when indicated; hemoglobin < 7.0 Iron studies suggest anemia of chronic disease On ferrous sulfate Newly diagnosed DM type 2: A1C 7.4 Hyperglycemia/hypoglycemia protocol in place Carb controlled diet Diabetes education provided by pulpwood dealer Hypernatremia: Resolved April 01, 2025: Respiratory culture grew Gram-positive cocci and Gram-negative rods Urine culture grows Klebsiella pneumoniae, and MRSA Blood culture shows Gram-positive cocci in cluster Consulted net developer contract for diagnostic and therapeutic thoracentesis. Concluded small pleural effusion, less amenable to tap We will continue vancomycin and Zosyn, ID consult is requested. April 02, 2025: Solu-Medrol taper down from 60 Q8H to 40 mg IV twice daily. Serum sodium is 150, NS discontinued, half NS initiated 100 mL/hours Procalcitonin ordered along with a hemoglobin A1c, TSH, and lipid panel Mucomyst initiated for expectoration ID consulted, waiting for evaluation and recommendations I spoke with the patient's [facility] physician; ([phone]), and inform him of the patient's current condition, lab findings, imaging results, and overall prognosis. 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 He also noted that arrangement for halfway facility placement have already been made in the patient is expected to be transferred once clinically stable. April 03, 2024: Serum sodium is 145, responded well to half NS, continue 100 mL/hours WBC 8.0, trended down from 22.2 on board, appreciate recommendations - Continue Vanco - Change Zosyn to Rocephin - Repeat blood cultures to ensure clearance - Anticipate need for 2 weeks of therapy; please hold indwelling access until blood cultures clear Hemoglobin A1c 7.4, newly diagnosed DM type 2. Hyperglycemia/hypoglycemia protocol in place, low carb diet TSH and lipid panel within reference ranges April 04, 2025: Perfusing well with 3 L supplemental oxygen via nasal cannula Shortness of breath has significantly improved WBC normalized, last protocol still elevated. We will monitor protocol every day Requested IR for diagnostic thoracentesis Nurse noticed black tarry stool, stool occult blood test ordered Sustained a minor fall, no head injury. Oriented x4. Fall precautions in place Patient we will go to [facility] probably on Tuesday. April 05, 2025: Perfusing well while breathing ambient air Procalcitonin normalized Repeat cultures 04/04/2025 negative We will continue vancomycin and Rocephin - ID on board Patient we will go to [facility] probably on Tuesday if repeat cultures remained negative. Code Status: Full DVT prophylaxis: Heparin subQ Analgesia/sedation: Tylenol as needed Line/tube: PIV GI prophylaxis: Protonix Nutrition: NPO until cleared by speech/swallow PT: Yes Prognosis: Guarded Disposition: We will continue treating him in PCU in isolation because of MRSA septicemia. ID on board. After becoming stable, patient will be DC to [place] rehab. Mark Lebron Internal Medicine Resident Date of Service: April 05, 2025 Billing Provider: KETTY CARRION MD Common Visit Codes: [id number] INP/OBS CARE(HIGH) MARK LEBRON, RES April 05, 2025 15:10 KETTY CARRION MD April 10, 2025 17:37
[2025-04-05] MEDS: VANCOMYCIN LEVEL IV ONE (16:09)
--- NOTE | 2025-04-05 17:01 | PROGRESS NOTE ---
Progress Note ID Providers to CC ~ Progress Note Progress Note: Antibiotic Days: Vanc 5, Rocephin 3 Lines: PIV Micro: 03/30 Blood- MRSA 03/30 Urine- Kleb, MRSA 03/31 Sputum- Kleb, MRSA 04/03 Blood- GPC in clusters 04/04 Blood- ngtd Subjective: Patient had no complaints. He seemed to be breathing better today. Despite his CXR findings, he is off of O2 Objective: Vitals: Afebrile, 43, 20, 125/67, 93% on RA General: Alert, NAD CV: Regular Resp: Clear anteriorly Abd: Soft, nontender, nondistended Ext: No peripheral stigmata of IE Lines: PIV ok Laboratory Tests 04/05/25 11:47 04/04 CXR 1. Complete opacification of the left hemithorax with leftward shift of the heart and mediastinum. This appearance may be due to any combination of progressive atelectasis, pneumonia, and/or malignancy. 2. Right lung interstitial prominence may be due to reactive airways disease or CHF. 3. Emphysema. Assessment: // MRSA septicemia, source is lungs. Valves ok on 2D echo. Repeats 04/04 ngtd // L Pneumonia - cultures with MRSA as above and Klebsiella. Finally down to RA // Protein gap // COPD with PRN O2 at baseline // Hx lung cancer s/p resection and XRT // Antibiotic Allergies: none known Plan: - Continue Vanco and Rocephin - Follow up repeat blood cultures to ensure clearance, 15 ngtd - Duration to depend on ease of clearance - looking like 7 days for Kleb and 4 weeks for MRSA; please hold indwelling access until blood cultures clear - Monitor WBC, count, O2 requirement - Pulmonary toilet - Dispo planning: [place] SNF - Will continue to follow TRANG SMITH DO April 05, 2025 17:01
[2025-04-05] MEDS: VANCOmycin 1250MG/NS 250ml Bag 250 ML IV SCH (20:05)
[2025-04-06] VITALS (12 sets, daily range): BP systolic 131–141; BP diastolic 42–65; PULSE 74–88; RESP 12–24; TEMP 97.2–97.6; O2SAT 92–97
[2025-04-06 06:48] LABS: BASOPHILS % (AUTO) 0.2 % (0-1); EOSINOPHILS % (AUTO) 0 % (0-6); HEMATOCRIT 25.9 % (42.0-52.0); HEMOGLOBIN 8.4 g/dl (14.0-17.9); LYMPHOCYTES # (AUTO) 0.9 X10'3 (1.1-4.8); LYMPHOCYTES % (AUTO) 9.9 % (21-51); MEAN CORPUSCULAR HEMOGLOBIN 24.8 PG (27.0-31.0); MEAN CORPUSCULAR HGB CONC 32.3 g/dL (33.0-36.5); MEAN CORPUSCULAR VOLUME 76.7 FL (78-98); MEAN PLATELET VOLUME 9.4 FL (7.4-10.4); MONOCYTES # (AUTO) 0.9 X10'3 (0-0.9); MONOCYTES % (AUTO) 9.6 % (2-12); NEUTROPHILS # (AUTO) 7.4 X10'3 (1.8-7.7); NEUTROPHILS % (AUTO) 80.3 % (42-75); PLATELET COUNT 276 X10'3 (140-440); RED BLOOD COUNT 3.38 X10'6 (4.70-6.10); RED CELL DISTRIBUTION WIDTH 18.3 % (11.5-14.5); WHITE BLOOD COUNT 9.2 X10'3 (4.5-11.0)
[2025-04-06 07:09] LABS: ALANINE AMINOTRANSFERASE 23 U/L (12-78); ALBUMIN 1.1 G/DL (3.4-5.0); ALBUMIN/GLOBULIN RATIO 0.2 (1.1-1.5); ALKALINE PHOSPHATASE 56 IU/L (46-116); ANION GAP 5 (8-16); ASPARTATE AMINO TRANSFERASE 14 U/L (10-37); BILIRUBIN,TOTAL 0.3 MG/DL (0.1-1.0); BLOOD UREA NITROGEN 12 MG/DL (7-18); BUN/CREATININE RATIO 26.1 (10.0-20.0); CALCIUM 8.3 MG/DL (8.5-10.1); CHLORIDE 104 MMOL/L (99-107); CREATININE 0.46 MG/DL (0.60-1.10); GLUCOSE 132 MG/DL (70-104); POTASSIUM 3.4 MMOL/L (3.5-5.1); SODIUM 138 MMOL/L (135-145); TOTAL PROTEIN 5.7 G/DL (6.4-8.2); eCRCL 132 ML/MIN; eGFR > 90 ML/MIN
[2025-04-06] MEDS ORDERED: potassium Cl 40MEQ/1/2NS 520ml 520 ML IV PRN (10:20)
[2025-04-06] MEDS ORDERED: potassium Cl 20 mEq SR tablet PO PRN (10:20)
[2025-04-06] MEDS: potassium Cl 20 mEq SR tablet PO PRN (10:30)
--- NOTE | 2025-04-06 11:53 | PROGRESS NOTE- Residence ---
Progress Note - Resident Providers to CC Resident Creating Document: MARK LEBRON RES ~ Antibiotic Timeout Antibiotic Ordered?: Yes Subjective Patient examined at bedside. Breathing comfortable on room air; no longer required supplemental oxygen. Hemodynamically stable WBC normal. We will continue IV vancomycin and ceftriaxone, repeat blood culture to ensure clearance of bacteremia. Objective Vital Signs Date Time Temp Pulse Resp B/P (MAP) Pulse Ox O2 Delivery O2 Flow Rate FiO2 04/06/25 08:00 15 96 Nasal Cannula 04/06/25 07:36 77 21 04/06/25 07:30 0 04/06/25 02:00 97.2 131/65 (87) General: Cachectic, Alert, awake, oriented, not in acute distress HEENT: PERRLA, no icterus, pallor, lymphadenopathy, carotid bruit Respiratory/chest: Decreased breath sounds on the left side in all lung zones, [id number]-wl-[id number] inspiratory crackles present in right middle and lower zones CVS: S1-S2 heard, no murmurs/rubs/gallop GI: Soft, nontender, no organomegaly, no guarding/rigidity, bowel sounds present Urinary: Suprapubic catheter in place Neuro: No focal neurological deficits present Extremities: No edema cyanosis clubbing/deformities Skin: Warm and dry Result Diagram: 04/06/25 0622 04/06/25 06 Coagulation Studies Laboratory Tests Test 03/30/25 14:08 Prothrombin Time 17.3 SECONDS (9.0-12.0) H INR International Normalized Ratio 1.8 INR Activated Partial Thromboplast Time 21 SECONDS (22-32) L Coagulation Comments Advance Care Planning Advanced Care plannin - 30 Minutes Assessment Assessment A 73-year-old male active smoker with history of COPD and lung cancer presented to the ED for progressive worsening of shortness of breaths and cough. Patient was admitted for the evaluation management of community-acquired pneumonia, COPD exacerbation and UTI. Plan Plan Acute hypoxemic respiratory failure Acute COPD exacerbation MRSA septicemia, MRSA UTI, MRSA pneumonia, possible postobstructive pneumonia 03/30 Blood- MRSA 03/30 Urine- Kleb, MRSA 03/31 Sputum- Kleb, MRSA Was 3 L oxygen via nasal cannula - no longer requires supplemental oxygen IV hydration; received 2 L NS bolus in ER, ordered another 1 L bolus. Continue NS 125 mL/hours Keep MEP > 65, if hypotension persists with IV hydration, we will initiate vasopressors Monitor lactic acid level, normalized Initially empiric broad-spectrum antibiotics i.e. vancomycin and Zosyn (day 6). Now, MRSA septicemia coverage Monitor hemodynamic instability closely Urinary tract infection: UA suggestive of UTI Cultures positive for MRSA and Klebsiella On broad-spectrum antibiotics as per above Acute kidney injury: 2/2 renal tubular stasis, resolved Continue IV hydration Monitor BMP closely Microcytic hypochromic anemia: Monitor H&H closely, transfuse when indicated; hemoglobin < 7.0 Iron studies suggest anemia of chronic disease On ferrous sulfate Newly diagnosed DM type 2: A1C 7.4 Hyperglycemia/hypoglycemia protocol in place Carb controlled diet Diabetes education provided by estate planning attorney Hypernatremia: Resolved April 01, 2025: Respiratory culture grew Gram-positive cocci and Gram-negative rods Urine culture grows Klebsiella pneumoniae, and MRSA Blood culture shows Gram-positive cocci in cluster Consulted truck rental service attendant for diagnostic and therapeutic thoracentesis. Concluded small pleural effusion, less amenable to tap We will continue vancomycin and Zosyn, ID consult is requested. April 02, 2025: Solu-Medrol taper down from 60 Q8H to 40 mg IV twice daily. Serum sodium is 150, NS discontinued, half NS initiated 100 mL/hours Procalcitonin ordered along with a hemoglobin A1c, TSH, and lipid panel Mucomyst initiated for expectoration ID consulted, waiting for evaluation and recommendations I spoke with the patient's [facility] physician; ([phone]), and inform him of the patient's current condition, lab findings, imaging results, and overall prognosis. 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 He also noted that arrangement for shelter facility placement have already been made in the patient is expected to be transferred once clinically stable. April 03, 2024: Serum sodium is 145, responded well to half NS, continue 100 mL/hours WBC 8.0, trended down from 22.2 on board, appreciate recommendations - Continue Vanco - Change Zosyn to Rocephin - Repeat blood cultures to ensure clearance - Anticipate need for 2 weeks of therapy; please hold indwelling access until blood cultures clear Hemoglobin A1c 7.4, newly diagnosed DM type 2. Hyperglycemia/hypoglycemia protocol in place, low carb diet TSH and lipid panel within reference ranges April 04, 2025: Perfusing well with 3 L supplemental oxygen via nasal cannula Shortness of breath has significantly improved WBC normalized, last protocol still elevated. We will monitor protocol every day Requested IR for diagnostic thoracentesis Nurse noticed black tarry stool, stool occult blood test ordered Sustained a minor fall, no head injury. Oriented x4. Fall precautions in place Patient we will go to [facility] probably on Tuesday. April 05, 2025: Perfusing well while breathing ambient air Procalcitonin normalized Repeat cultures 04/04/2025 negative We will continue vancomycin and Rocephin - ID on board Patient we will go to [facility] probably on Tuesday if repeat cultures remained negative. April 06, 2025: Previously required 3 L oxygen-no off oxygen and maintaining saturation on room air Continue vancomycin and Rocephin Repeat blood cultures to ensure clearance Patient we will go to [facility] probably on Tuesday if repeat cultures remained negative. Code Status: Full DVT prophylaxis: Heparin subQ Analgesia/sedation: Tylenol as needed Line/tube: PIV GI prophylaxis: Protonix Nutrition: NPO until cleared by speech/swallow PT: Yes Prognosis: Guarded Disposition: We will continue treating him in PCU in isolation because of MRSA septicemia. ID on board. After becoming stable, patient will be DC to [place] rehab. Mark Lebron Internal Medicine Resident Date of Service: April 06, 2025 Billing Provider: KETTY CARRION MD Common Visit Codes: [id number] INP/OBS CARE(HIGH) MARK LEBRON, RES April 06, 2025 11:53 KETTY CARRION MD April 10, 2025 17:38
[2025-04-07] VITALS (17 sets, daily range): BP systolic 97–139; BP diastolic 37–55; PULSE 68–95; RESP 10–32; TEMP 97.3–98.4; O2SAT 94–98
[2025-04-07] MEDS: VANCOMYCIN LEVEL IV ONE (06:30)
[2025-04-07 07:09] LABS: BASOPHILS % (AUTO) 0.1 % (0-1); EOSINOPHILS % (AUTO) 0 % (0-6); HEMATOCRIT 29.6 % (42.0-52.0); HEMOGLOBIN 9.4 g/dl (14.0-17.9); LYMPHOCYTES # (AUTO) 1.3 X10'3 (1.1-4.8); LYMPHOCYTES % (AUTO) 9.7 % (21-51); MEAN CORPUSCULAR HEMOGLOBIN 24.8 PG (27.0-31.0); MEAN CORPUSCULAR HGB CONC 31.8 g/dL (33.0-36.5); MEAN CORPUSCULAR VOLUME 78.2 FL (78-98); MEAN PLATELET VOLUME 9.3 FL (7.4-10.4); MONOCYTES % (AUTO) 7.9 % (2-12); NEUTROPHILS # (AUTO) 10.7 X10'3 (1.8-7.7); NEUTROPHILS % (AUTO) 82.3 % (42-75); PLATELET COUNT 309 X10'3 (140-440); RED BLOOD COUNT 3.79 X10'6 (4.70-6.10); RED CELL DISTRIBUTION WIDTH 18.4 % (11.5-14.5)
[2025-04-07 07:23] LABS: ALANINE AMINOTRANSFERASE 21 U/L (12-78); ALBUMIN 1.1 G/DL (3.4-5.0); ALBUMIN/GLOBULIN RATIO 0.2 (1.1-1.5); ALKALINE PHOSPHATASE 58 IU/L (46-116); ANION GAP 5 (8-16); ASPARTATE AMINO TRANSFERASE 22 U/L (10-37); BILIRUBIN,TOTAL 0.4 MG/DL (0.1-1.0); BLOOD UREA NITROGEN 10 MG/DL (7-18); BUN/CREATININE RATIO 17.5 (10.0-20.0); CALCIUM 8.6 MG/DL (8.5-10.1); CHLORIDE 103 MMOL/L (99-107); CREATININE 0.57 MG/DL (0.60-1.10); GLUCOSE 103 MG/DL (70-104); POTASSIUM 3.8 MMOL/L (3.5-5.1); SODIUM 137 MMOL/L (135-145); TOTAL CARBON DIOXIDE 29.1 MMOL/L (24-32); TOTAL PROTEIN 6.1 G/DL (6.4-8.2); VANCOMYCIN,TROUGH 18.6 ug/mL (10.0-20.0); eCRCL 107 ML/MIN; eGFR > 90 ML/MIN
--- NOTE | 2025-04-07 09:50 | PROGRESS NOTE- Residence ---
Progress Note - Resident Providers to CC Resident Creating Document: MARK LEBRON RES ~ Antibiotic Timeout Antibiotic Ordered?: Yes Subjective Patient examined at bedside. Breathing comfortable on room air; no longer required supplemental oxygen. Hemodynamically stable. We will continue IV vancomycin and ceftriaxone, repeat blood culture to ensure clearance of bacteremia. Blood culture 04/04 negative. Objective Vital Signs Date Time Temp Pulse Resp B/P (MAP) Pulse Ox O2 Delivery O2 Flow Rate FiO2 04/07/25 07:56 83 18 Room Air 21 04/07/25 07:50 97 0 04/07/25 02:00 97.7 128/39 (68) General: Cachectic, Alert, awake, oriented, not in acute distress HEENT: PERRLA, no icterus, pallor, lymphadenopathy, carotid bruit Respiratory/chest: Decreased breath sounds on the left side in all lung zones, [id number] inspiratory crackles present in right middle and lower zones CVS: S1-S2 heard, no murmurs/rubs/gallop GI: Soft, nontender, no organomegaly, no guarding/rigidity, bowel sounds present Urinary: Suprapubic catheter in place Neuro: No focal neurological deficits present Extremities: No edema cyanosis clubbing/deformities Skin: Warm and dry Result Diagram: 04/07/25 0610 04/07/25 0610 Coagulation Studies Laboratory Tests Test 03/30/25 14:08 Prothrombin Time 17.3 SECONDS (9.0-12.0) H INR International Normalized Ratio 1.8 INR Activated Partial Thromboplast Time 21 SECONDS (22-32) L Coagulation Comments Advance Care Planning Advanced Care plannin - 30 Minutes Assessment Assessment A 73-year-old male active smoker with history of COPD and lung cancer presented to the ED for progressive worsening of shortness of breaths and cough. Patient was admitted for the evaluation management of community-acquired pneumonia, COPD exacerbation and UTI. Plan Plan Acute hypoxemic respiratory failure Acute COPD exacerbation MRSA septicemia, MRSA UTI, MRSA pneumonia, possible postobstructive pneumonia 03/30 Blood- MRSA 03/30 Urine- Kleb, MRSA 03/31 Sputum- Kleb, MRSA Was 3 L oxygen via nasal cannula - no longer requires supplemental oxygen IV hydration; received 2 L NS bolus in ER, ordered another 1 L bolus. Continue NS 125 mL/hours Keep MEP > 65, if hypotension persists with IV hydration, we will initiate vasopressors Monitor lactic acid level, normalized Initially empiric broad-spectrum antibiotics i.e. vancomycin and Zosyn (day 6). Now, MRSA septicemia coverage Monitor hemodynamic instability closely Urinary tract infection: UA suggestive of UTI Cultures positive for MRSA and Klebsiella On broad-spectrum antibiotics as per above Acute kidney injury: 2/2 renal tubular stasis, resolved Continue IV hydration Monitor BMP closely Microcytic hypochromic anemia: Monitor H&H closely, transfuse when indicated; hemoglobin < 7.0 Iron studies suggest anemia of chronic disease On ferrous sulfate Newly diagnosed DM type 2: A1C 7.4 Hyperglycemia/hypoglycemia protocol in place Carb controlled diet Diabetes education provided by hair colorist Hypernatremia: Resolved April 01, 2025: Respiratory culture grew Gram-positive cocci and Gram-negative rods Urine culture grows Klebsiella pneumoniae, and MRSA Blood culture shows Gram-positive cocci in cluster Consulted resident director for diagnostic and therapeutic thoracentesis. Concluded small pleural effusion, less amenable to tap We will continue vancomycin and Zosyn, ID consult is requested. April 02, 2025: Solu-Medrol taper down from 60 Q8H to 40 mg IV twice daily. Serum sodium is 150, NS discontinued, half NS initiated 100 mL/hours Procalcitonin ordered along with a hemoglobin A1c, TSH, and lipid panel Mucomyst initiated for expectoration ID consulted, waiting for evaluation and recommendations I spoke with the patient's [facility]; ([phone]), and inform him of the patient's current condition, lab findings, imaging results, and overall prognosis. 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 He also noted that arrangement for assisted facility placement have already been made in the patient is expected to be transferred once clinically stable. April 03, 2024: Serum sodium is 145, responded well to half NS, continue 100 mL/hours WBC 8.0, trended down from 22.2 on board, appreciate recommendations - Continue Vanco - Change Zosyn to Rocephin - Repeat blood cultures to ensure clearance - Anticipate need for 2 weeks of therapy; please hold indwelling access until blood cultures clear Hemoglobin A1c 7.4, newly diagnosed DM type 2. Hyperglycemia/hypoglycemia protocol in place, low carb diet TSH and lipid panel within reference ranges April 04, 2025: Perfusing well with 3 L supplemental oxygen via nasal cannula Shortness of breath has significantly improved WBC normalized, last protocol still elevated. We will monitor protocol every day Requested IR for diagnostic thoracentesis Nurse noticed black tarry stool, stool occult blood test ordered Sustained a minor fall, no head injury. Oriented x4. Fall precautions in place Patient we will go to [facility] probably on Tuesday. April 05, 2025: Perfusing well while breathing ambient air Procalcitonin normalized Repeat cultures 04/04/2025 negative We will continue vancomycin and Rocephin - ID on board Patient we will go to [facility] probably on Tuesday if repeat cultures remained negative. April 06, 2025: Previously required 3 L oxygen-no off oxygen and maintaining saturation on room air Continue vancomycin and Rocephin Repeat blood cultures to ensure clearance Patient we will go to [facility] probably on Tuesday if repeat cultures remained negative. April 07, 2025: Perfusing well while breathing ambient air. Repeat blood cultures to ensure clearance Patient we will go to [facility] probably on Tuesday if repeat cultures remained negative. Disposition/Sign Off: This patient was admitted for acute hypoxemic respiratory failure secondary to an acute COPD exacerbation, and community-acquired pneumonia. He was found to have MRSA septicemia, MRSA UTI, and MRSA pneumonia. He has been receiving treatment with Rocephin and vancomycin. Infectious diseases actively involved in his care. In coordination with the ID team, the patient may be discharged to [facility] likely on Tuesday. A PICC line we will be required prior to discharge. Please ensure coordination with ID to determine the total duration of antibiotic therapy before arranging DC. Code Status: Full DVT prophylaxis: Heparin subQ Analgesia/sedation: Tylenol as needed Line/tube: PIV GI prophylaxis: Protonix Nutrition: NPO until cleared by speech/swallow PT: Yes Prognosis: Guarded Mark Lebron Internal Medicine Resident Date of Service: April 07, 2025 Billing Provider: KETTY CARRION MD Common Visit Codes: [id number] INP/OBS CARE(HIGH) MARK LEBRON, SALEEM April 07, 2025 09:50 KETTY CARRION MD April 10, 2025 17:38
[2025-04-08] VITALS (16 sets, daily range): BP systolic 105–138; BP diastolic 46–73; PULSE 63–90; RESP 14–26; TEMP 97–98.6; O2SAT 93–98
[2025-04-08 08:49] LABS: BASOPHILS % (AUTO) 0.1 % (0-1); EOSINOPHILS % (AUTO) 0.1 % (0-6); HEMATOCRIT 30.3 % (42.0-52.0); HEMOGLOBIN 9.6 g/dl (14.0-17.9); LYMPHOCYTES # (AUTO) 1.4 X10'3 (1.1-4.8); LYMPHOCYTES % (AUTO) 13.1 % (21-51); MEAN CORPUSCULAR HEMOGLOBIN 25.1 PG (27.0-31.0); MEAN CORPUSCULAR HGB CONC 31.6 g/dL (33.0-36.5); MEAN CORPUSCULAR VOLUME 79.4 FL (78-98); MEAN PLATELET VOLUME 9.1 FL (7.4-10.4); MONOCYTES # (AUTO) 0.8 X10'3 (0-0.9); MONOCYTES % (AUTO) 7.7 % (2-12); NEUTROPHILS # (AUTO) 8.4 X10'3 (1.8-7.7); PLATELET COUNT 258 X10'3 (140-440); RED BLOOD COUNT 3.82 X10'6 (4.70-6.10); RED CELL DISTRIBUTION WIDTH 18.5 % (11.5-14.5); WHITE BLOOD COUNT 10.6 X10'3 (4.5-11.0)
[2025-04-08 09:18] LABS: PLATELET ESTIMATE NORMAL
[2025-04-08 09:19] LABS: ANISOCYTOSIS 2+; MICROCYTOSIS 1+
[2025-04-08 09:20] LABS: ELLIPTOCYTES FEW; LARGE PLATELETS FEW; POLYCHROMASIA FEW; SCHISTOCYTES FEW
[2025-04-08 09:29] LABS: ALANINE AMINOTRANSFERASE 10 U/L (12-78); ALBUMIN 1.1 G/DL (3.4-5.0); ALBUMIN/GLOBULIN RATIO 0.2 (1.1-1.5); ANION GAP 6 (8-16); ASPARTATE AMINO TRANSFERASE 20 U/L (10-37); BILIRUBIN,TOTAL 0.3 MG/DL (0.1-1.0); BLOOD UREA NITROGEN 14 MG/DL (7-18); BUN/CREATININE RATIO 24.6 (10.0-20.0); CALCIUM 8.6 MG/DL (8.5-10.1); CHLORIDE 102 MMOL/L (99-107); CREATININE 0.57 MG/DL (0.60-1.10); GLUCOSE 141 MG/DL (70-104); POTASSIUM 3.9 MMOL/L (3.5-5.1); SODIUM 135 MMOL/L (135-145); eCRCL 107 ML/MIN; eGFR > 90 ML/MIN
[2025-04-08 10:19] LABS: ALKALINE PHOSPHATASE 59 IU/L (46-116)
[2025-04-08] MEDS: lactose-reduced food (Ensure High Protein) 237ml bottle PO SCH (13:13)
--- NOTE | 2025-04-08 17:49 | PROGRESS NOTE- Residence ---
Progress Note - Resident Providers to CC Resident Creating Document: TERESA WARD RES ~ Antibiotic Timeout Antibiotic Ordered?: Yes Subjective Patient was seen and examined at the bedside today. Patient is comfortably lying on the bed. Reports no new complaints. Dr. Kennedy, recommended 4 b week course of vancomycin, stop date 05/01/2025. Patient will be discharged tomorrow to [facility] Objective Vital Signs Date Time Temp Pulse Resp B/P (MAP) Pulse Ox O2 Delivery O2 Flow Rate FiO2 04/08/25 15:56 80 18 Room Air 0.0 04/08/25 15:49 96 21 04/08/25 11:00 97.9 105/46 (65) Result Diagram: 04/08/2580404/08/25804 General: Cachectic, Alert, awake, oriented, not in acute distress HEENT: PERRLA, no icterus, pallor, lymphadenopathy, carotid bruit Respiratory/chest: Decreased breath sounds on the left side in all lung zones, [id number] inspiratory crackles present in right middle and lower zones CVS: S1-S2 heard, no murmurs/rubs/gallop GI: Soft, nontender, no organomegaly, no guarding/rigidity, bowel sounds present Urinary: Suprapubic catheter in place Neuro: No focal neurological deficits present Extremities: No edema cyanosis clubbing/deformities Skin: Warm and dry Coagulation Studies Laboratory Tests Test 03/30/25 14:08 Prothrombin Time 17.3 SECONDS (9.0-12.0) H INR International Normalized Ratio 1.8 INR Activated Partial Thromboplast Time 21 SECONDS (22-32) L Coagulation Comments Assessment Assessment A 73-year-old male active smoker with history of COPD and lung cancer presented to the ED for progressive worsening of shortness of breaths and cough. Patient was admitted for the evaluation management of community-acquired pneumonia, COPD exacerbation and UTI. Plan Plan Acute hypoxemic respiratory failure Acute COPD exacerbation MRSA septicemia, MRSA UTI, MRSA pneumonia, possible postobstructive pneumonia 03/30 Blood- MRSA 03/30 Urine- Kleb, MRSA 03/31 Sputum- Kleb, MRSA Was 3 L oxygen via nasal cannula - no longer requires supplemental oxygen IV hydration; received 2 L NS bolus in ER, ordered another 1 L bolus. Continue NS 125 mL/hours Keep MEP > 65, if hypotension persists with IV hydration, we will initiate vasopressors Monitor lactic acid level, normalized Initially empiric broad-spectrum antibiotics i.e. vancomycin and Zosyn (day 6). Now, MRSA septicemia coverage Monitor hemodynamic instability closely Urinary tract infection: UA suggestive of UTI Cultures positive for MRSA and Klebsiella On broad-spectrum antibiotics as per above Acute kidney injury: 2/2 renal tubular stasis, resolved Continue IV hydration Monitor BMP closely Microcytic hypochromic anemia: Monitor H&H closely, transfuse when indicated; hemoglobin < 7.0 Iron studies suggest anemia of chronic disease On ferrous sulfate Newly diagnosed DM type 2: A1C 7.4 Hyperglycemia/hypoglycemia protocol in place Carb controlled diet Diabetes education provided by regrind mill operator Hypernatremia: Resolved April 01, 2025: Respiratory culture grew Gram-positive cocci and Gram-negative rods Urine culture grows Klebsiella pneumoniae, and MRSA Blood culture shows Gram-positive cocci in cluster Consulted workforce investment act career manager for diagnostic and therapeutic thoracentesis. Concluded small pleural effusion, less amenable to tap We will continue vancomycin and Zosyn, ID consult is requested. April 02, 2025: Solu-Medrol taper down from 60 Q8H to 40 mg IV twice daily. Serum sodium is 150, NS discontinued, half NS initiated 100 mL/hours Procalcitonin ordered along with a hemoglobin A1c, TSH, and lipid panel Mucomyst initiated for expectoration ID consulted, waiting for evaluation and recommendations I spoke with the patient's [facility] physician; ([phone]), and inform him of the patient's current condition, lab findings, imaging results, and overall prognosis. 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 He also noted that arrangement for shelter facility placement have already been made in the patient is expected to be transferred once clinically stable. April 03, 2024: Serum sodium is 145, responded well to half NS, continue 100 mL/hours WBC 8.0, trended down from 22.2 on board, appreciate recommendations - Continue Vanco - Change Zosyn to Rocephin - Repeat blood cultures to ensure clearance - Anticipate need for 2 weeks of therapy; please hold indwelling access until blood cultures clear Hemoglobin A1c 7.4, newly diagnosed DM type 2. Hyperglycemia/hypoglycemia protocol in place, low carb diet TSH and lipid panel within reference ranges April 04, 2025: Perfusing well with 3 L supplemental oxygen via nasal cannula Shortness of breath has significantly improved WBC normalized, last protocol still elevated. We will monitor protocol every day Requested IR for diagnostic thoracentesis Nurse noticed black tarry stool, stool occult blood test ordered Sustained a minor fall, no head injury. Oriented x4. Fall precautions in place Patient we will go to [facility] probably on Tuesday. April 05, 2025: Perfusing well while breathing ambient air Procalcitonin normalized Repeat cultures 04/04/2025 negative We will continue vancomycin and Rocephin - ID on board Patient we will go to [facility] probably on Tuesday if repeat cultures remained negative. April 06, 2025: Previously required 3 L oxygen-no off oxygen and maintaining saturation on room air Continue vancomycin and Rocephin Repeat blood cultures to ensure clearance Patient we will go to [facility] probably on Tuesday if repeat cultures remained negative. April 07, 2025: Perfusing well while breathing ambient air. Repeat blood cultures to ensure clearance Patient we will go to [facility] probably on Tuesday if repeat cultures remained negative. April 08, 2025 Repeat blood cultures negative. Discharged to [facility] tomorrow Four-week course of vancomycin, stop date 05/01/2025 Discontinued Rocephin Disposition: Discharge tomorrow to [facility] Code Status: Full DVT prophylaxis: Heparin subQ Analgesia/sedation: Tylenol as needed Line/tube: PIV GI prophylaxis: Protonix Nutrition: Regular diet PT: Yes Prognosis: Guarded Teresa Ward M.D PGY1 Date of Service: April 08, 2025 Billing Provider: KETTY CARRION MD Common Visit Codes: [id number] INP/OBS CARE(HIGH) TERESA WARD, RES April 08, 2025 17:49 KETTY CARRION MD April 10, 2025 17:38
--- NOTE | 2025-04-08 19:37 | PROGRESS NOTE ---
Progress Note ID Providers to CC ~ Progress Note Progress Note: Antibiotic Days: Vanc 8, Rocephin 6 Lines: PIV Micro: 03/30 Blood- MRSA 03/30 Urine- Kleb, MRSA 03/31 Sputum- Kleb, MRSA 04/03 Blood- GPC in clusters 04/04 Blood- ngtd Subjective: Patient was seen prior to line placement Objective: Vitals: Afebrile, 90, 23, 105/46, 93% on RA General: Alert, NAD CV: Regular Resp: Clear anteriorly Abd: Soft, nontender, nondistended Ext: No peripheral stigmata of IE Lines: PIV ok Laboratory Tests 04/08/25 08:05 Assessment: // MRSA septicemia, source is lungs. Valves ok on 2D echo. Repeats cleared 04/04 // L Pneumonia - cultures with MRSA as above and Klebsiella. Finally down to RA // COPD with PRN O2 at baseline // Hx lung cancer s/p resection and XRT // Antibiotic Allergies: none known Plan: - Continue Vanco until 05/02/25 - DC Rocephin - CBC, CMP, Vanco trough weekly and PRN - Physical therapy - Dispo planning: [facility] TRANG SMITH DO April 08, 2025 19:37
[2025-04-09 02:49] VITALS: PULSE 71; RESP 16; O2SAT 97
[2025-04-09 06:00] VITALS: BP 143/73; PULSE 78; RESP 19; TEMP 98.3; O2SAT 94; O2SAT 95
[2025-04-09 08:00] VITALS: RESP 19; O2SAT 95
[2025-04-09 08:30] LABS: BASOPHILS % (AUTO) 0.1 % (0-1); EOSINOPHILS % (AUTO) 0 % (0-6); HEMATOCRIT 29.3 % (42.0-52.0); HEMOGLOBIN 9.5 g/dl (14.0-17.9); LYMPHOCYTES # (AUTO) 1.3 X10'3 (1.1-4.8); LYMPHOCYTES % (AUTO) 9.2 % (21-51); MEAN CORPUSCULAR HEMOGLOBIN 25.5 PG (27.0-31.0); MEAN CORPUSCULAR HGB CONC 32.6 g/dL (33.0-36.5); MEAN CORPUSCULAR VOLUME 78.1 FL (78-98); MEAN PLATELET VOLUME 9.6 FL (7.4-10.4); MONOCYTES # (AUTO) 1.1 X10'3 (0-0.9); MONOCYTES % (AUTO) 7.5 % (2-12); NEUTROPHILS # (AUTO) 12.1 X10'3 (1.8-7.7); NEUTROPHILS % (AUTO) 83.2 % (42-75); PLATELET COUNT 309 X10'3 (140-440); RED BLOOD COUNT 3.75 X10'6 (4.70-6.10); RED CELL DISTRIBUTION WIDTH 18.9 % (11.5-14.5); WHITE BLOOD COUNT 14.6 X10'3 (4.5-11.0)
[2025-04-09] MEDS: pantoprazole 40mg Tablet.DR PO SCH (09:05)
[2025-04-09 10:21] LABS: ALANINE AMINOTRANSFERASE 17 U/L (12-78); ALBUMIN 1.3 G/DL (3.4-5.0); ALBUMIN/GLOBULIN RATIO 0.3 (1.1-1.5); ALKALINE PHOSPHATASE 63 IU/L (46-116); ANION GAP 5 (8-16); ASPARTATE AMINO TRANSFERASE 10 U/L (10-37); BILIRUBIN,TOTAL 0.4 MG/DL (0.1-1.0); BLOOD UREA NITROGEN 14 MG/DL (7-18); BUN/CREATININE RATIO 27.5 (10.0-20.0); CALCIUM 8.8 MG/DL (8.5-10.1); CHLORIDE 102 MMOL/L (99-107); CREATININE 0.51 MG/DL (0.60-1.10); GLUCOSE 131 MG/DL (70-104); POTASSIUM 3.8 MMOL/L (3.5-5.1); SODIUM 137 MMOL/L (135-145); TOTAL CARBON DIOXIDE 30.5 MMOL/L (24-32); eCRCL 119 ML/MIN; eGFR > 90 ML/MIN
[2025-04-09 11:19] VITALS: BP 135/53; PULSE 93; RESP 20; TEMP 97.2; O2SAT 95
--- NOTE | 2025-04-09 14:26 | DISCHARGE SUMMARY-Residence ---
Discharge Summary Providers to CC Resident Creating Document: KYKARENMICHAELASALEEM Cueva ~ Discharge Summary Admission Diagnosis: Sepsis, Pneumonia, Respiratory failure Hospital Course DATE OF ADMISSION: March 30, 2025 DATE OF DISCHARGE: April 09, 2025 Discharge Diagnosis\Comment: Acute hypoxemic respiratory failure Acute COPD exacerbation MRSA septicemia, MRSA UTI, MRSA pneumonia, possible postobstructive pneumonia 03/30 Blood- MRSA 03/30 Urine- Kleb, MRSA 03/31 Sputum- Kleb, MRSA Urinary tract infection Acute kidney injury: 2/2 renal tubular stasis, resolved Microcytic hypochromic anemia; Iron studies suggest anemia of chronic disease Newly diagnosed DM type 2; A1C 7.4 Hypernatremia: Resolved Operations\Procedures: None Consultants: Dr. Green Complications: None Condition on DC: Stable for transfer Discharge Summary: History of present illness: Patient is a 79-year-old male, active smoker, with a history of COPD (not on home oxygen) and lung cancer (20 years ago) presents to ED for progressively worsening shortness of breath and cough for the past four weeks. For the past one week, his shortness of breath has gotten worse and has been constantly coughing; usually dry cough, but occasionally produce whitish sputum. Patient also noticed recent weight loss, but does not know how much, and diminished appetite. He denies any fever, chest pain, or chills. He also denies any urinary symptoms. He has completed chemotherapy 20 years ago for lung cancer. He seeks primary care at [facility]. He does not have a crew member. Hospital course: The patient had a prolonged hospital stay following admission for acute hypoxemic respiratory failure due to COPD exacerbation and left-sided community- acquired pneumonia. Initial cultures drawn on March 30, 2025, were positive for MRSA. Concurrent urine culture also showed MRSA and Klebsiella species, and sputum culture on March 31 confirmed MRSA and Klebsiella. Given the pulmonary source and patient's sister of MRSA septicemia came, he was treated with IV vancomycin and Rocephin. Blood culture remained persistently negative since April 04, 2025. Vancomycin was continued for eight days during the hospitalization and will be continued until May 02, 2025. Rocephin was discontinued after 6h day. Initially required 3 L oxygen support; no breathing comfortably on NPO and air. SUMIT attributed to renal tubular stasis resolved with IV hydration. Hypernatremia resolved with appropriate fluid replacement. Iron studies sugge sted anemia of chronic disease. The patient was also newly diagnosed with type 2 diabetes was treated with hospitalist hyperglycemia protocol. During hospitalization, communicated with his [place] providers; ([phone]), who confirmed arrangements have been made for the patient to be discharged to a penitentiary facility in [place] once becomes more stable. Discharge course: Patient was transferred to [facility] unstable conditions. Is afebrile, hemodynamically stable, no supplemental oxygen requirement, clinically improving. He was discharged with the following instructions: - Continue Vanco until 05/02/25 - Follow-up with Dr. Green in after completion of antibiotics. - CBC and renal panel in one week. Diabetes follow-up and continued glucose monitoring. - Complete vancomycin infusion as scheduled. - Monitor for with current signs of infection. Follow diabetic diet and blood glucose checks. Hydration and activity as tolerated. Discharge physical exam: Vital Signs Date Time Temp Pulse Resp B/P (MAP) Pulse Ox O2 Delivery O2 Flow Rate FiO2 04/09/25 11:19 97.2 93 20 135/53 (80) 95 Room Air 04/09/25 02:49 0 21 General: Cachectic, Alert, awake, oriented, not in acute distress HEENT: PERRLA, no icterus, pallor, lymphadenopathy, carotid bruit Respiratory/chest: Decreased breath sounds on the left side in all lung zones, [id number] inspiratory crackles present in right middle and lower zones CVS: S1-S2 heard, no murmurs/rubs/gallop GI: Soft, nontender, no organomegaly, no guarding/rigidity, bowel sounds present Urinary: Suprapubic catheter in place Neuro: No focal neurological deficits present Extremities: No edema cyanosis clubbing/deformities Skin: Warm and dry Microbiology report: 03/30 Blood- MRSA 03/30 Urine- Kleb, MRSA 03/31 Sputum- Kleb, MRSA 04/03 Blood- GPC in clusters 04/04 Blood- ngtd *Problems/Diagnosis: (1) Acute exacerbation of chronic obstructive airways disease Status: Acute (2) Acute kidney injury Status: Acute (3) Pneumonia Status: Acute (4) Lung cancer Status: Acute (5) Sepsis Status: Acute (6) Anemia Status: Acute Total Time Spent on D/C: Up to 30 Minutes Date of Service: April 09, 2025 Billing Provider: KETTY CARRION MD Common Visit Codes: [id number]-[id number] DISCH DAY >30min Problem Qualifiers (1) Pneumonia: Pneumonia type: due to unspecified organism Laterality: left Lung location: unspecified part of lung Qualified Codes: J18.9 - Pneumonia, unspecified or ganism (2) Lung cancer: Laterality: unspecified laterality Lung location: unspecified part of lung Qualified Codes: C34.90 - Malignant neoplasm of unspecified part of unspecified bronchus or lung (3) Sepsis: Sepsis type: sepsis due to unspecified organism Sepsis acute organ dysfunction status: with acute organ dysfunction Severe sepsis acute organ dysfunction type: acute respiratory failure Acute respiratory failure type: with hypoxia Severe sepsis shock status: without septic shock Qualified Codes: A41.9 - Sepsis, unspecified organism; R65.20 - Severe sepsis without septic shock; J96.01 - Acute respiratory failure with hypoxia (4) Anemia: Anemia type: unspecified type Qualified Codes: D64.9 - Anemia, unspecified MARK GRIGSBY, SALEEM April 09, 2025 14:25 KETTY CARRION MD April 10, 2025 17:38
== END 2025-04-09 13:11 | DRG 871 ==
LOC: ER 08:43 → ED HOLD 11:32 → PCU 3S 19:45
PROVIDERS: ADMIT Family Medicine; ATTEND Family Medicine
PROC: 05HD33Z Insertion of Infusion Device into Right Cephalic Vein, Percutaneous Approach (ICD-10-PCS; principal; 2025-04-08)
PROC: B54MZZA Ultrasonography of Right Upper Extremity Veins, Guidance (ICD-10-PCS; 2025-04-08)
DX: A41.02 Sepsis due to Methicillin resistant Staphylococcus aureus (principal); J15.212 Pneumonia due to Methicillin resistant Staphylococcus aureus; J15.69 Pneumonia due to other Gram-negative bacteria; R65.21 Severe sepsis with septic shock; N17.0 Acute kidney failure with tubular necrosis; J96.21 Acute and chronic respiratory failure with hypoxia; N39.0 Urinary tract infection, site not specified; E87.0 Hyperosmolality and hypernatremia; J44.1 Chronic obstructive pulmonary disease with (acute) exacerbation; J44.0 Chronic obstructive pulmonary disease with (acute) lower respiratory infection; E87.1 Hypo-osmolality and hyponatremia; J90 Pleural effusion, not elsewhere classified; Z66 Do not resuscitate; D50.8 Other iron deficiency anemias; E11.9 Type 2 diabetes mellitus without complications; Z79.899 Other long term (current) drug therapy; Z85.118 Personal history of other malignant neoplasm of bronchus and lung
CPT/HCPCS: 36410; 36415; 71045; 71250; 76604; 76942; 80053; 80061; 80202; 81001; 82948; 83036; 83540; 83550; 83605; 83930; 84145; 84443; 85007; 85008; 85025; 85610; 85730; 87040; 87070; 87077; 87081; 87088; 87186; 92508; 92616; 93005; 93306; 94640; 94668; 94760; 96365; 96375; 97110; 97116; 97162; 97530; 99285; A4314; A4615; A4624; A6258; C1751; G0378; J0696; J1644; J1815; J2470; J2543; J2919; J3370; J3372; J3490; J7030; J7040

== ENCOUNTER 2025-04-10 00:23 | Emergency (ER) | payer MEDICARE, OTHER ==
[~2025-04-10] VITALS: Ht 175.3 cm; Wt 90.9 kg
[~2025-04-10 00:23] MED LIST: ADV50100; AMLO10TA13 PO; CYAN-34 PO; DOCU100C40 PO; FINA5TAB11 PO; IRON150C5 PO; LACT-48; OMEP20CA16 PO; POLY17PO10 PO; SENN-360 PO; SIMV10TA98 PO; TAMSULOSIN; UMEC62.5 INH
--- NOTE | 2025-04-10 01:37 | RADIOLOGY REPORT ---
CHEST RADIOGRAPH Indication: cath placement Technique: Single frontal view of the chest was obtained COMPARISON: DI CHEST,SINGLE VIEW on DOS: 04/05/25 FINDINGS / IMPRESSION: Lines and Tubes: Right-sided PICC noted with its tip in the right axillary region. Lungs / Pleura: Complete opacification of left hemithorax again noted, stable compared to the prior c hest x-ray from 04/05/25. Right lung appears clear. Cardiomediastinal contours: Unremarkable
[2025-04-10] MEDS: VANCOMYCIN/H2O 1.25G/250mL PB 250 ML IV ONE (02:34)
[2025-04-10] MEDS: VANCOmycin 1250MG/NS 250ml Bag 250 ML IV STA (03:20)
--- NOTE | 2025-04-10 03:28 | Physician Documentation ---
HPI ~ General Chief Complaint: Medication Request Stated Complaint: IV ACCESS Time Seen by MD: 03:27 Mode of Arrival: EMS History of Present Illness HPI Comments Patient presents to the emergency room with concerns of his right PICC line. Per EMS report it was reported that they feel like his PICC line was infiltrated. Patient is supposed to be on vancomycin till April. Medication Reconciliation Allergies: Coded Allergies: No Known Allergies (Unverified , 03/30/25) Scheduled Amlodipine Besylate (Amlodipine Besylate), 1 TAB PO DAILY, (Reported) Cyanocobalamin (Vitamin B-12) (Vitamin B-12), 1 CAP PO DAILY, (Reported) Docusate Sodium (Docusate Sodium), 1 CAP PO Q12H, (Reported) Finasteride (Finasteride), 1 TAB PO DAILY, (Reported) Omeprazole (Omeprazole), 1 CAP PO DAILY, (Reported) Polyethylene Glycol 3350* (Miralax*), 1 PKT PO DAILY, (Reported) Sennosides (Senna), 1 TAB PO Q12H, (Reported) Simvastatin (Simvastatin), 1 TAB PO HS, (Reported) Umeclidinium [place] (Incruse Ellipta), 1 PUFFS INH DAILY, (Reported) Miscellaneous Medications Fluticasone/Salmeterol (Advair 100-50 Diskus), (Reported) Iron Polysaccharides Complex (Ferrex 150), 150 MG PO, (Reported) Lactose-Free Food (Ensure Plus), (Reported) [Tamsulosin], (Reported) Review of Systems ROS All review of systems negative except as per HPI Physical Exam Physical Exam Vital Signs: Heart Rate: 78, Respiratory Rate: 18, BP: 129/65, Pulse Oximetry: 94, Weight: 90.910 Physical Exam General: Patient is awake, alert, oriented x4 in no acute distress Head: Normocephalic and atraumatic. Eyes: Conjunctival normal. EOMI. PERRL. ENT: Mucous membranes moist. Neck: Supple, trachea is midline. Chest: Clear to auscultation bilaterally without rales, rhonchi, or wheezes. There is no accessory muscle use or retractions. Cardiac: RRR without murmurs, gallops, or rubs. Extremities: N. Cleaned in right upper extremity with no swelling or cellulitis Progress Results/Orders Results/Orders Orders - IRVIN PAL MD Chest,Single View (04/10/25 00:46) Completed Orders - IRVIN PAL MD Chest,Single View (04/10/25 00:46) Vancomycin 1250mg/Ns 250ml Bag (Vancomyc (04/10/25 01:47) Medications Received in ER Medications (Trade) Dose Ordered Sig/Giorgio Route PRN Reason Start Time Stop Time Status Last Admin Dose Admin Vancomycin HCl 250 ml @ 166 mls/hr ONCE STAT IV 04/10/25 01:47 04/10/25 03:17 DC 04/10/25 03:20 166 MLS/HR Vital Signs 04/10/25 04/10/25 04/10/25 04/10/25 00:39 00:45 01:00 03:27 Pulse 78 82 81 Resp 15 18 26 26 B/P (MAP) 129/65 119/51 (73) 125/47 (73) Pulse Ox 94 97 97 O2 Flow Rate 0 0 Medical Decision Making Findings Patient presented to the emergency room with concerns of his PICC line. Differentials include but are not limited to infiltrated PICC line, clogged PICC line, DVT, cellulitis. Chest x-ray shows PICC line terminating in the axilla and vancomycin can easily go in. We will give him his dose vancomycin and [facility] Departure Disposition: 01 HOME / SELF CARE / HOMELESS Impression: Primary Impression: Status post PICC central line placement Condition: Stable Discharge Instructions: PICC Home Care Guide Additional Instructions: Patient has received his vancomycin Referrals: NO PRIMARY CARE PROVIDER (PCP) Signature Scribe Signature: No scribe Attestation: The note accurately reflects work and decisions made by me.Irvin Pal MD 04/10/25 03:41 IRVIN PAL MD April 10, 2025 03:28
[2025-04-10 08:21] VITALS: BP 122/57; PULSE 94; RESP 16; TEMP 98; O2SAT 98
== END 2025-04-10 08:22 | disposition home or self-care (01) ==
LOC: ER 00:24
DX: Z45.2 Encounter for adjustment and management of vascular access device (principal)
CPT/HCPCS: 71045; 96365; 96366; 99284; J3370

== ENCOUNTER 2025-04-16 10:30 | Day surgery (SDC) | payer MEDICARE, OTHER | END 2025-04-16 13:00 | disposition home or self-care (01) | LOC: SSTAY O 10:30 | PROVIDERS: ATTEND Family Medicine | DX: J15.212 Pneumonia due to Methicillin resistant Staphylococcus aureus (principal); J43.9 Emphysema, unspecified; I10 Essential (primary) hypertension; K21.9 Gastro-esophageal reflux disease without esophagitis; Z98.890 Other specified postprocedural states; Z79.899 Other long term (current) drug therapy | CPT/HCPCS: 36573; C1751; 36569; 76942 ==